=== PATIENT | female | born 1985 | race Caucasian/White ===

== ENCOUNTER 2017-03-09 05:12 | Outpatient (CLI) | payer MEDICAID, OTHER ==
[~2017-03-09] VITALS: Ht 172.7 cm; Wt 79.3 kg
[2017-03-09 06:22] VITALS: Ht 172.7 cm; Wt 79.3 kg
[2017-03-09 06:23] VITALS: BP 117/67; PULSE 83; RESP 18
[2017-03-09] MEDS ORDERED: OMEG-140 PO (06:28)
[2017-03-09] MEDS ORDERED: PRENAT PO (06:28)
[2017-03-09] MEDS ORDERED: FOLI0.8C PO (06:28)
[2017-03-09] MEDS ORDERED: TERBUTALINE 1 MG/ML INJ SC ONE (07:00)
--- NOTE | 2017-03-09 09:33 | RADRPT ---
PROCEDURE: US OB. CLINICAL INDICATION: Twin gestation. Vaginal bleeding. TECHNIQUE: Multiple sonographic images of the pelvis were obtained. Transabdominal and transvagin al imaging was performed. The images were reviewed on a PACS workstation. COMPARISON: None available. FINDINGS: There is a twin viable intrauterine gestation. The cervix is closed with a length of 3.54 cm. Twin A: Cardiac activity is present with 158 beats per minute. There is a cephalic presentation. BPD = 5.8 cm HC = 22.48 cm AC = 19.6 cm FL = 4.11 cm Estimated gestational age of approximately 24 weeks 0 days. The estimated date of delivery is 06/29/2017. The EFW = 643.1 g, at the less than 3rd percentile. Twin B: Cardiac activity is present with 161 beats per minute. There is a breech presentation. BPD = 5.49 cm HC = 21.53 cm AC = 18.61 cm FL = 4.17 cm Estimated gestational age of approximately 23 weeks 2 days. The estimated date of delivery is 07/04/2017. The EFW = 595.17 g, at the less than 3rd percentile. The placenta is right posterior, grade 0/1. There is no evidence for an abruption or placenta previa . IMPRESSION: 1. Twin viable intrauterine gestation. Twin A: Estimated gestational age of 24 weeks 0 days an es timated delivery date of 06/29/2017. Twin B: Estimated gestational age of 23 weeks 2 days an estim ated delivery date of 07/04/2017. RPTAT: HLBP .Diomedes Gallagher MD, Date Time Electronically viewed and signed by .Diomedes Gallagher MD, MD on 03/09/2017 09:32 .P/
--- NOTE | 2017-03-09 11:44 | QN ---
Documentation Comment Laborist Dr Dye's pt 31 y.o. G1 with an IUP at 25w 4d. 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 Pt came in with light bleeding since 1800 yesterday and heavier bleeding since 0300. Pt has observed pelvic rest. 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 Pt says she feels the baby moving a lot but was feeling some more pressure and back pain overnight. No leaking. PMHx: none. PSHx: twin-twin transfusion correction procedure. NKDA. BP 107/67 Twin A EFW 643 grams,VTX. Twin B 595 grams, breech. Cervical length 3.5 cm, closed. Placenta is right posterior and w/o evidence of abruption or previa. Pt was given a dose of terbutaline and she does report feeling the back pain and LAP that she was having has resolved. On review of the tracing however it cannot be determined that she was having contractions. A: IUP at 25w 4d. Twins, mono-mono, s/p twin-twin transfusion correction surgery. Bleeding. False labor. P: RN spoke to Dr Dye so he is aware of this pt and agrees with plan to send her home. Reviewed in detail with pt and her family what modified bedrest is and why it is important and how it differs from what she has been doing. JOANNE WAITE MD March 09, 2017 11:43
== END 2017-03-09 11:58 | disposition home or self-care (01) ==
LOC: OBT 05:12 → L-D 05:13 → OBT 11:58
PROVIDERS: ATTEND Obstetrics & Gynecology
DX: O30.012 Twin pregnancy, monochorionic/monoamniotic, second trimester (principal); O46.92 Antepartum hemorrhage, unspecified, second trimester; Z3A.25 25 weeks gestation of pregnancy
CPT/HCPCS: 76815; 76817; 96372; J3105; Z7500; G0463

== ENCOUNTER 2017-03-24 13:43 | Inpatient (IN) | payer OTHER ==
[~2017-03-24] VITALS: Ht 170.2 cm; Wt 80.7 kg
[~2017-03-24 13:43] MED LIST: FOLI0.8C PO; OMEG-140 PO; PRENAT PO
[2017-03-24] MEDS ORDERED: FERR236T PO (13:55)
[2017-03-24 14:25] VITALS: BP 113/71; PULSE 84; RESP 18
--- NOTE | 2017-03-24 15:10 | RADRPT ---
PROCEDURE: US OB. CLINICAL INDICATION: Vaginal bleeding TECHNIQUE: Multiple sonographic images of the pelvis were obtained. Transabdominal imaging only w as performed. The images were reviewed on a PACS workstation. COMPARISON: 03/09/2017 FINDINGS: There is a twin intrauterine gestation. There is a shared lateral placenta without evidence of previa or abruption. TWIN A Cardiac activity is present with 168 beats per minute. Presentation is cephalic. TWIN B Cardiac activity is present with 166 beats per minute. Presentation is breech. IMPRESSION: 1. Twin intrauterine gestation. 2. No previa or abruption. RPTAT: EE .James Ha MD, MD Date Time Electronically viewed and signed by .James Ha MD, MD on 03/24/2017 15:14 .C/
[2017-03-24] MEDS ORDERED: DIMETHICONE STICK TOP PRN (15:30)
[2017-03-24] MEDS ORDERED: MAGNESIUM SULFATE 4 GM/100 ML 100 ML ONE (16:36)
[2017-03-24] MEDS ORDERED: MAGNESIUM SULFATE 4 GM/100 ML 100 ML IV ONE (17:00)
[2017-03-24 17:08] LABS: ADD UMIC YES; UR BILIRUBIN (Dip) NEGATIVE (NEGATIVE); UR BLOOD (Dip) 2+ (NEGATIVE); UR CLARITY CLEAR (CLEAR); UR COLOR YELLOW (YELLOW); UR GLUCOSE (Dip) NEGATIVE (NEGATIVE); UR KETONES (Dip) NEGATIVE (NEGATIVE); UR LEUKOCYTE ESTERASE (Dip) NEGATIVE (NEGATIVE); UR NITRITE (Dip) NEGATIVE (NEGATIVE); UR TOTAL PROTEIN (Dip) 1+ (NEGATIVE); UR UROBILINOGEN (Dip) 0.2 E.U./dL (0.1-1.0)
[2017-03-24 17:19] LABS: UR MUCUS MODERATE
[2017-03-24 17:21] LABS: UR BACTERIA RARE
[2017-03-24] MEDS: LACTATED RINGER'S 1,000 ML IV SCH (17:31)
[2017-03-24] MEDS: MAGNESIUM SULFATE 20 GM/500 ML 500 ML IV SCH (17:42)
[2017-03-24] MEDS: BETAMET NA PHOS/AC(6 MG/ML) 5ML INJ IM SCH (17:44)
--- NOTE | 2017-03-24 17:44 | TRIAGE ---
OB Triage Datetime Report Generated by CPN: 03/24/2017 17:44 Datetime: 03/24/2017 17:20 Assessment Type: Admission Assessment Vaginal Bleeding: Small Maternal Assessment Level of Consciousness: Fully Conscious DTR's/Clonus: DTRs 2+; No Clonus Headache: Denies Blurred Vision: No Respiratory Effort: Unlabored; Regular Rhythm; Equal Expansion Breath Sounds, Left: Clear and Equal Breath Sounds, Right: Clear and Equal Nausea/Vomiting: Denies RUQ Epigastric Pain: Denies Lower Extremities Edema: None Upper Extremities Edema: None Facial Edema: None Fall Risk Assessment History of Falling: (0) No Secondary Diagnosis: (0) No Ambulatory Aid: (0) Bedrest/Nurse Assist IV Therapy: (0) No Gait: (0) Normal/Bedrest/Immobile Mental Status: (0) Oriented to Own Ability Fall Score: 0 Fall Risk Score Definition: No Risk: No action required Labor Evaluation Frequency: occ Duration (sec)2399: 5-6 Quality: Mild Pattern: Normal: <= 5 Contractions in 10 Minutes Resting Tone [place]: Relaxed Heart Rate FHR Baseline Rate: 160 Variability: Moderate 6-25 bpm Accelerations: 10X10 Decelerations: Variable Category: Category II Pain Assessment Pain Scale: 5 Pain Presence: Intermittent Pain Type: Sharp; Ache Pain Location: Back (Annotations: lower back ) Membrane Status: Intact Datetime: 03/24/2017 17:18 Time of Arrival: 03/24/2017 16:25 EGA: 27.5 Arrived By: Stretcher Arrived From: Other Unit in Hospital Datetime: 03/24/2017 16:21 Labor Evaluation Frequency: 2-10 Monitor Mode: External Duration (sec)2399: 40-60 Quality: Mild Pattern: Normal: <= 5 Contractions in 10 Minutes Resting Tone [place]: Relaxed Contraction Comments: IRRITABILITIES PRESENT Heart Rate FHR Baseline Rate: 155 Monitor Mode: External US FHR Baseline Changes: No Baseline Change Variability: Moderate 6-25 bpm Accelerations: 15X15 Decelerations: Variable Pain Assessment Pain Scale: 6 Pain Presence: Intermittent Pain Type: Sharp; Ache Pain Location: Back Datetime: 03/24/2017 15:48 Labor Evaluation Frequency: 2-5 Monitor Mode: External Duration (sec)2399: 50-80 Quality: Mild Pattern: Normal: <= 5 Contractions in 10 Minutes Resting Tone [place]: Relaxed Heart Rate FHR Baseline Rate: 155 Monitor Mode: External US FHR Baseline Changes: No Baseline Change Variability: Moderate 6-25 bpm Accelerations: 10X10 Decelerations: Variable; Prolonged Datetime: 03/24/2017 15:23 Decelerations: Prolonged Comments: @1519, DECEL FROM BASELINE 160BPM DOWN TO 145BPM OVER 30SECONDS, AT 145BPM OVER 90 SECON DS, THEN BACK TO BASELINE 160BPM OVER 30 SECONDS Datetime: 03/24/2017 15:10 Comments: MATERNAL HEARTBEAT, PT'S LEGS BENT UP; PT REPOSITIONED Datetime: 03/24/2017 15:06 Vaginal Exam Dilatation (cms): 0.5 Effacement (%): 0 Station: -3 Exam By: CKUNIYOSHI Vaginal Bleeding: Small Cervix, Consistency: Firm Cervix, Position: Posterior Datetime: 03/24/2017 14:44 Labor Evaluation Frequency: 0 Monitor Mode: External Pattern: Normal: <= 5 Contractions in 10 Minutes Resting Tone [place]: Relaxed Heart Rate FHR Baseline Rate: 155 FHR Baseline Changes: No Baseline Change Variability: Moderate 6-25 bpm Accelerations: 10X10 Decelerations: Variable Datetime: 03/24/2017 14:22 Monitor Mode: External Datetime: 03/24/2017 14:17 Stage of : OB Triage Assessment Type: Triage Maternal Assessment Level of Consciousness: Fully Conscious Headache: Denies Blurred Vision: No Respiratory Effort: Unlabored; Regular Rhythm; Equal Expansion Breath Sounds, Left: Clear and Equal Breath Sounds, Right: Clear and Equal Nausea/Vomiting: Denies RUQ Epigastric Pain: Denies Lower Extremities Edema: None Degree: None Upper Extremities Edema: None (Annotations: PT REPORTS SWELLING OF HANDS AT NIGHT ONLY) Degree: None Facial Edema: None Temperature Route: Oral Fall Risk Assessment History of Falling: (0) No Secondary Diagnosis: (0) No Ambulatory Aid: (0) Bedrest/Nurse Assist IV Therapy: (0) No Gait: (0) Normal/Bedrest/Immobile Mental Status: (0) Oriented to Own Ability Fall Score: 0 Fall Risk Score Definition: No Risk: No action required Pain Assessment Pain Scale: 6 Pain Presence: Constant Pain Type: Sharp; Ache Pain Location: Back Pain Assessment Comments: PAIN OF 4/10 IN LEFT LOWER ABDOMEN Datetime: 03/24/2017 13:58 Time of Arrival: 03/24/2017 13:38 EGA: 27.5 Arrived By: Wheelchair Arrived From: Emergency Dept Chief Complaint: LOWER BACK PAIN; BLEEDING FROM 03/07 - UNKNOWN REASON (Annotations: Data stored by CPN on behalf of user) Chief Complaint: LOWER BACK PAIN OF 6/10 THAT COMES AND GOES; STRONGER WHEN SHE IS STANDING OR WAL STACEY Movement: Present Contractions: Denies/Absent Rupture of Membranes: Denies Vaginal Bleeding: Moderate Vaginal Discharge: Present Recent Sexual Intercouse: Denies Abdominal Trauma: Not Applicable Patient Complaints: Back Pain; Other Additional Patient Complaints: BLEEDING FROM 03/09; APPPROX 3-4 OVERNIGHT PADS/DAY; SLIGHT CRAMPIN G PAIN OF 4/10 ON LEFT ABDOMEN Time Provider Notified: 03/24/2017 14:31 Provider Notified: DR. PEÑALOZA Initial Plan: EFM x2, U/S FOR PLACENTA, SVE (IF NO EVIDENCE OF PREVIA), OBSERVE x4 HOURS, KEEP NPO Datetime: 03/09/2017 08:40 Maternal Assessment Level of Consciousness: Fully Conscious DTR's/Clonus: DTRs 2+; No Clonus Headache: Denies Blurred Vision: No Respiratory Effort: Unlabored; Regular Rhythm; Equal Expansion Breath Sounds, Left: Clear and Equal Breath Sounds, Right: Clear and Equal Nausea/Vomiting: Denies RUQ Epigastric Pain: Denies Facial Edema: None Temperature Route: Axillary Fall Risk Assessment History of Falling: (0) No Secondary Diagnosis: (0) No Ambulatory Aid: (0) Bedrest/Nurse Assist IV Therapy: (0) No Gait: (0) Normal/Bedrest/Immobile Mental Status: (0) Oriented to Own Ability Fall Score: 0 Fall Risk Score Definition: No Risk: No action required Datetime: 03/09/2017 07:19 Maternal Assessment Level of Consciousness: Fully Conscious DTR's/Clonus: DTRs 2+; No Clonus Headache: Denies Blurred Vision: No Respiratory Effort: Unlabored; Regular Rhythm; Equal Expansion Breath Sounds, Left: Clear and Equal Breath Sounds, Right: Clear and Equal Nausea/Vomiting: Denies RUQ Epigastric Pain: Denies Facial Edema: None Temperature Route: Axillary Fall Risk Assessment History of Falling: (0) No Secondary Diagnosis: (0) No Ambulatory Aid: (0) Bedrest/Nurse Assist IV Therapy: (0) No Gait: (0) Normal/Bedrest/Immobile Mental Status: (0) Oriented to Own Ability Fall Score: 0 Fall Risk Score Definition: No Risk: No action required Datetime: 03/09/2017 07:17 Maternal Assessment Level of Consciousness: Fully Conscious DTR's/Clonus: DTRs 2+ Headache: Denies Blurred Vision: No Nausea/Vomiting: Denies RUQ Epigastric Pain: Denies Facial Edema: None Labor Evaluation Frequency: MILD IRREG Monitor Mode: External Quality: Mild Pattern: Normal: <= 5 Contractions in 10 Minutes Resting Tone [place]: Relaxed Pain Assessment Pain Scale: 4 Pain Presence: Intermittent Pain Type: Pressure Pain Location: Abdomen Pain Goal: 4 Datetime: 03/09/2017 07:01 Vaginal Exam Dilatation (cms): 0.5 Effacement (%): 40 Station: -3 Exam By: Joe Olmos RN Vaginal Bleeding: Small Cervix, Consistency: Firm Cervix, Position: Posterior Datetime: 03/09/2017 05:54 Assessment Type: Triage Maternal Assessment Level of Consciousness: Fully Conscious DTR's/Clonus: DTRs 2+; No Clonus Headache: Denies Blurred Vision: No Respiratory Effort: Unlabored; Regular Rhythm; Equal Expansion Breath Sounds, Left: Clear and Equal Breath Sounds, Right: Clear and Equal Nausea/Vomiting: Denies RUQ Epigastric Pain: Denies Facial Edema: None Fall Risk Assessment History of Falling: (0) No Secondary Diagnosis: (0) No Ambulatory Aid: (0) Bedrest/Nurse Assist IV Therapy: (0) No Gait: (0) Normal/Bedrest/Immobile Mental Status: (0) Oriented to Own Ability Fall Score: 0 Fall Risk Score Definition: No Risk: No action required Datetime: 03/09/2017 05:19 EGA: 25.4 Datetime: 03/09/2017 05:18 Time of Arrival: 03/09/2017 05:05 Arrived By: Wheelchair Arrived From: Home Chief Complaint: Abdominal pain, Bleeding Movement: Present Contractions: Irregular Time Contractions Began: 03/08/2017 18:00 Rupture of Membranes: Denies Vaginal Bleeding: Moderate Recent Sexual Intercouse: Denies Abdominal Trauma: Not Applicable Patient Complaints: Other Time Provider Notified: 03/09/2017 06:30 Provider Notified: DR PEÑALOZA Initial Plan: Doppler FHT's, VE, CL, hydration, Terb.
[2017-03-24 18:35] LABS: ADD SCAN DIFF NO
[2017-03-24 18:41] LABS: BASOPHILS % 0.2 % (0.0-2.0); EOSINOPHILS # 0.1 10^3/ul (0.0-0.5); EOSINOPHILS % 0.9 % (0.0-7.0); HEMATOCRIT 26.7 % (37.0-47.0); HEMOGLOBIN 8.8 g/dl (12.0-16.0); LYMPHOCYTES # 1.4 10^3/ul (0.8-2.9); LYMPHOCYTES % 11.7 % (15.0-51.0); MONOCYTE # 0.9 10^3/ul (0.3-0.9); MONOCYTES % 7.2 % (0.0-11.0); NEUTROPHIL # 9.4 10^3/ul (1.6-7.5); NEUTROPHILS % 78.4 % (39.0-77.0); NUCLEATED RED BLOOD CELLS # 0.1 10^3/ul (0.0-0.0); NUCLEATED RED BLOOD CELLS% 0.6 /100WBC (0.0-0.0); PLATELET COUNT 188 10^3/UL (140-415); RED BLOOD COUNT 3.14 10^6/ul (4.20-5.40)
[2017-03-24 18:53] LABS: INR 0.97; PROTIME 12.9 Sec (12.2-14.2)
[2017-03-24 18:54] LABS: PARTIAL THROMBOPLASTIN TIME 27.4 Sec (25.0-35.0)
[2017-03-25] MEDS: MAGNESIUM SULFATE 20 GM/500 ML 500 ML IV SCH ×2 (03:20→14:11)
[2017-03-25] MEDS: LACTATED RINGER'S 1,000 ML IV SCH ×2 (03:21→16:05)
--- NOTE | 2017-03-25 06:17 | RADRPT ---
PROCEDURE: OB ultrasound for RED CLINICAL INDICATION: Twin , position TECHNIQUE: Multiple sonographic images of the pelvis were obtained for determination of RED. Booth sabdominal views of the gravid uterus are available for review. The images were reviewed on a PACS workstation. COMPARISON: None FINDINGS: Twin A: The heart rate is 132 bpm. position is cephalic. Twin B: The heart rate is 144 bpm. position is breech. The placenta is fundal . IMPRESSION: 1. Twin live intrauterine gestation. 2. Twin A demonstrates cephalic presentation. Twin B demonstrates breech presentation. RPTAT: HH .Edel Archer MD, MD Date Time Electronically viewed and signed by .Edel Archer MD, on 03/25/2017 06:16 .G/
[2017-03-25] MEDS: DEXTROSE 5%-LR 1,000 ML IV SCH (07:39)
--- NOTE | 2017-03-25 10:25 | RADRPT ---
PROCEDURE: US OB biophysical profile. CLINICAL INDICATION: decreased movements TECHNIQUE: Multiple sonographic images of the pelvis were obtained. The images were reviewed on a PACS workstation. COMPARISON: Yesterday FINDINGS: There is a twin viable intrauterine gestation. Twin A Cardiac activity is present with 144 beats per minute. There is a cephalic presentation. The placenta is fundal. MVP = 1.5 cm Biophysical profile: movement 2/2 tone 2/2. breathing 2/2 RED /2 Total 6/8 Twin B Cardiac activity is present with 134 beats per minute. There is a breech presentation. The placenta is fundal. MVP = 1.6 cm Biophysical profile: movement 2/2 tone 2/2. breathing 2/2 RED 0/2 Total 6/8 RPTAT: AA . IMPRESSION: Decreased biophysical profile for twin gestation . Oligohydramnios. . .Chad Ballard MD, MD Date Time Electronically viewed and signed by .Chad Ballard MD, MD on 03/25/2017 10:24 .S/
[2017-03-25 11:22] LABS: BARBITURATES Negative (NEGATIVE); BENZODIAZEPINES Negative (NEGATIVE); CANNABINOIDS Negative (NEGATIVE); COCAINE Negative (NEGATIVE); OPIATES Negative (NEGATIVE)
[2017-03-25] MEDS ORDERED: AMPICILLIN 2 GM/NS (PMX) 100 ML IV ONE (14:00)
[2017-03-25] MEDS ORDERED: AZITHROMYCIN 500MG/NS (PMX) 250 ML IVPB ONE (14:00)
[2017-03-25] MEDS ORDERED: MAGNESIUM SULFATE 1 GM/D5W 100 ML IVPB ONE (14:00)
--- NOTE | 2017-03-25 15:11 | QN ---
Documentation Comment Neonatology consult at the request of Dr. Dye 03/25/2017 I spoke with Ms. Morochocarla and Dr. Dye in her room regarding the risks associated delivery twin gestation with complications. This mom is 20 years old 2 para 1 now at 29-6/7 weeks gestation status post twin-twin transfusion with ablation and being followed by perinatology at [facility]. Both infants are growing slowly less than 3rd percentile with minimal amniotic fluid surrounding each twin. One twin has possible intraventricular hemorrhage of both twins to have some form of cardiac problems on the last ultrasound. I spoke about the risks associated with delivery including not limited to the following 1 respiratory I spoke about the risks of respiratory distress syndrome use of ventilatory support and oxygen I did explain that having low amniotic fluid as well as poor growth does compromise the our ability to have adequate pulmonary growth for ventilation and may complicate the long-term course and lead to chronic issues. 2.Cardiac there were abnormalities seen on both 's initial ultrasounds and those will need to be addressed by cardiology the infant may have problem with hypotension requiring inotropic support may have ductus arteriosus also requiring closure either with the medications or surgery at a tertiary center. 3.I spoke of the risks of infection especially in light of these infant's a very low size and the anticipated need for long-term interventional access either lines endotracheal intubation etc. which will increase the risks of infection. 4. I also spoke with the risks of anemia jaundice and long-term sequelae. 5. We spoke of the risks of intraventricular hemorrhage but because of being born prematurely as well as the abnormality seen on ultrasound I did explain the grading system long-term possible sequela and that and she wishes to speak with a neurologist to have better information once a decision is made about delivering these infants. I concur with Dr. Dye that in light of this significant issues with IUGR status, oligohydramnios, twin gestation with a history of twin-twin transfusion , cardiac ultrasound abnormalities as noted previously that delivery is probably best at a tertiary center and we are expecting that that if possible will be arranged. There is an emergent situation requiring delivery here will be course available for attendance at delivery as well as their stabilization and considerations for treatment or transfer as necessary based on her medical condition. Thank you for this consult KEITH Parra MD Mar 25, 2017 15:11
--- NOTE | 2017-03-25 16:11 | HP ---
Date/Time of Note Date/Time of Note DATE: 03/25/17 TIME: 16:09 OB - History Hx of Present Free Text/Dictation 27 WEEKS, TWINS, HX OF CORD ABALATION BY DR. ALEJANDRO. PRESENTS WITH VAG BLEED AND UTERINE CTXS ADMITTED FOR BETA METHASONE, AMPICILLIN, MAGNESUIUM Care: Good Care Ultrasounds: Abnormal US findings (TWIN TWIN TRASNFUSION) Obstetrical Complications: Growth Restriction Medical Complications: None Past Family/Social History * Past Medical, Surgical, Family and Obstetric Histories reviewed from chart. OB Admission Exam Vital Signs Vital Signs Vital Signs Date Time Temp Pulse Resp B/P Pulse Ox O2 Delivery O2 Flow Rate FiO2 03/24/17 14:25 98.2 84 18 113/71 98 Room Air Physical Exam HEENT: WNL Heart: Rhythm Normal Lungs: Clear, Equal Abdomen: WNL Extremities: Normal Reflexes: Normal Cervical Dilatation: None Effacement: 0% Station: Ballotable Membranes: Intact Contractions on Admission: 6-10 Minutes Apart Intensity: Mild Last 72 hours Lab Results CBC & BMP 03/24/17 17:50 Magnesium Level Test 03/25/17 00:40 03/25/17 05:30 03/25/17 11:35 Magnesium Level 6.2 *H 6.7 *H 7.3 *H OB Assessment/Plan Reason for admission: observation Plan: Other (BETA METHASONE, AMPICILLIN, MAGNESIUM) JULIO PEÑALOZA MD Mar 25, 2017 16:11
[2017-03-25] MEDS: MULTIVIT/MIN/FOLATE/IRON/PREN TAB PO SCH (17:43)
[2017-03-25] MEDS: BETAMET NA PHOS/AC(6 MG/ML) 5ML INJ IM SCH (17:43)
[2017-03-25] MEDS: FERROUS SULFATE (EC) 325 MG TAB PO SCH (17:43)
[2017-03-25] MEDS: AMPICILLIN 1 GM/NS (PMX) 50 ML IV SCH (19:54)
[2017-03-26] MEDS: AMPICILLIN 1 GM/NS (PMX) 50 ML IV SCH ×7 (00:15→20:17)
--- NOTE | 2017-03-26 03:15 | CONS ---
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 She un derwent ablation of the placenta, and currently this is counted as a diamniotic dichorioni c twins. According to her ultrasound initially, both babies were growth restricted with twin B more than twin A. Her most recent ultrasound showed interval growth, and twin B is essentially at 13th percentile for gestational age, and twin A is about 10. On 03/21/2017, maximum vertical pocket of t win A was about 3 cm and twin B was 2.4 cm. It is also important to mention that the twin B had some ventricular hemorrhage which, on the ultras ound done on 03/21/2017, the amount has apparently decreased. After talking to the patient, the patient desires intervention for both babies, and she has had disc ussions with Dr. Ruiz about the possibility of neural damage on the twin B; however, she would like to have everything done for both. She, underwent BPP, maximal vertical pocket of both twins were less than 2 cm. This could be second radha to progression of disease or rupture of membranes. She came in with heavy vaginal bleeding yest erday, and it is possible that she had some vaginal fluid with that bleeding; however, it is not shawanda e what is the etiology of oligohydramnios. So far, I will be treating her as rupture of membranes. RECOMMENDATIONS: Continue monitoring of both twins. She is currently being tocolysed for con tractions, and her second dose of magnesium sulfate is to be given this afternoon early evening. Monitor the magnesium level, and currently her magnesium is decreased to 1 gram after her magnesium level was 7.6. So far, the plan is for the patient to be in house managed, and if there is no evidence of bleeding and also she does not have any leakage of fluid which negates rupture of membrane as the cause of e oligohydramnios, she could possibly be discharged on Saturday morning to present to her appointme nt with Dr. Ruiz which is important for further counseling, and also they are to discuss whether sh e would like to terminate the for twin B; however, I am not sure about this as she is curr ently about 28 weeks; however, she has had discussions with Dr. Ruiz, and they will be addressing i t at that time if she gets to be discharged and to see Dr. Ruiz; however, after I spoke to Dr. Giovanna rouse today, essentially his recommendation was that the patient should see her after discharge if she i s to be discharged. Otherwise, the plan should be discussed with the patient, and she desires compl ete resuscitation of both fetuses. As I mentioned above, she would like to be monitored and resusci tation to be made for both of them. Continue with the IV antibiotics for latency. However, if by W she is not having any leakage of fluid, then it can be discontinued. However, I will send the patient home if she is to be discharged on p.o. antibiotics. NICU is consulted, and I spoke to Dr. Ruiz and Dr. Dye multiple times. The plan has been discus sed with Dr. Dye. Dictated By: EMILEE RAMOS/AMBAR Conf#: [id number] DID#: [id number]
[2017-03-26] MEDS: LACTATED RINGER'S 1,000 ML IV SCH ×3 (03:32→22:08)
[2017-03-26] MEDS: DEXTROSE 5%-LR 1,000 ML IV SCH ×5 (07:30→23:30)
[2017-03-26] MEDS: MAGNESIUM SULFATE 20 GM/500 ML 500 ML IV SCH ×2 (07:42→10:42)
[2017-03-26] MEDS: MULTIVIT/MIN/FOLATE/IRON/PREN TAB PO SCH (08:41)
[2017-03-26] MEDS: FERROUS SULFATE (EC) 325 MG TAB PO SCH (08:41)
[2017-03-26 12:56] LABS: RUBELLA ANTIBODY - IGG 1.52 index
[2017-03-26] MEDS: AZITHROMYCIN 250 MG in SOD CHLORIDE 0.9% 250 ML IVPB SCH (15:10)
--- NOTE | 2017-03-26 20:13 | QN ---
Documentation Comment pt. is stable vss minimal vag bleed. occ ctxs. tracings reactive no decleration. Plan: will check for SROM and if negative will d/c home pt. to see Dr. Berg at [facility]. Pt. understands and agrees with the decision plan JULIO PEÑALOZA MD Mar 26, 2017 20:13
[2017-03-27] MEDS: AMPICILLIN 1 GM/NS (PMX) 50 ML IV SCH (00:01)
[2017-03-27] MEDS ORDERED: MAGNESIUM SULFATE 4 GM/100 ML 100 ML IVPB ONE (00:30)
[2017-03-27] MEDS: MAGNESIUM SULFATE 20 GM/500 ML 500 ML IV SCH ×2 (01:41→11:10)
[2017-03-27] MEDS: LACTATED RINGER'S 1,000 ML IV SCH ×2 (01:42→13:56)
[2017-03-27] MEDS: AMPICILLIN 1 GM/NS (PMX) 50 ML IVPB SCH ×3 (04:10→13:56)
[2017-03-27] MEDS: DEXTROSE 5%-LR 1,000 ML IV SCH ×2 (07:30→15:30)
--- NOTE | 2017-03-27 09:06 | RADRPT ---
PROCEDURE: US OB biophysical profile. CLINICAL INDICATION: decreased movements , oligohydramnios. TECHNIQUE: Multiple sonographic images of the pelvis were obtained. The images were reviewed on a PACS workstation. COMPARISON: 03/25/2017 FINDINGS: There is a twin viable intrauterine gestation. Twin A Cardiac activity is present with 152 beats per minute. There is a vertex presentation. MVP = 1.85 cm Biophysical profile: movement 2/2 tone 2/2. breathing 2/2 RED 0/2 Total 6/8 Twin B Cardiac activity is present with 140 beats per minute. There is a breech presentation. The placenta is fundal. MVP = 1.6 cm Biophysical profile: movement 2/2 tone 2/2. breathing 2/2 RED 0/2 Total 6/8 RPTAT: AA . IMPRESSION: Decreased biophysical profile for twin gestation . Oligohydramnios. . .Chad Ballard MD, MD Date Time Electronically viewed and signed by .Chad Ballard MD, on 03/27/2017 09:05 .S/
[2017-03-27] MEDS: FERROUS SULFATE (EC) 325 MG TAB PO SCH (09:46)
[2017-03-27] MEDS: MULTIVIT/MIN/FOLATE/IRON/PREN TAB PO SCH (09:46)
--- NOTE | 2017-03-27 13:58 | PN ---
Date/Time of Note Date/Time of Note DATE: 03/27/17 TIME: 13:56 OB Subjective Subjective Subjective Patient reports shortness of breath, Denies any chest pain. Denies feeling any contractions, still continued to have occasional vaginal bleeding. OB Objective Objective Objective General appearance: Alert and oriented 4. Patient appears to be in mild distress Lungs: Clear to auscultation bilaterally CV: RRR Abdomen: Soft, gravid, fundal height correlate the gestational age and twin No abdominal tenderness, no guarding Extremities: No calf tenderness, no cords palpable, no click, negative Homans sign 1+ bilateral patellar reflexes noted NST: Category 1 for both babies No contractions seen on the monitor Sterile speculum examination: Cervix appears to be closed and long. About 2 cc bloody fluid noted. Hematology - 72 Hrs Test 03/24/17 17:50 White Blood Count 12.010^3/ul (4.8-10.8) H Red Blood Count 3.1410^6/ul (4.20-5.40) L Hemoglobin 8.8g/dl (12.0-16.0) L Hematocrit 26.7% (37.0-47.0) L Mean Corpuscular Volume 85.0fl (82.0-101.0) Mean Corpuscular Hemoglobin 28.0pg (29.0-33.0) L Mean Corpuscular Hemoglobin Concent 33.0g/dl (32.0-37.0) Red Cell Distribution Width 15.0% (11.5-14.5) H Platelet Count 56553^3/UL (140-415) Mean Platelet Volume 11.0fl (7.4-10.4) H Neutrophils % 78.4% (39.0-77.0) H Lymphocytes % 11.7% (15.0-51.0) L Monocytes % 7.2% (0.0-11.0) Eosinophils % 0.9% (0.0-7.0) Basophils % 0.2% (0.0-2.0) Nucleated Red Blood Cells % 0.6/100WBC (0.0-0.0) H Neutrophils # 9.410^3/ul (1.6-7.5) H Lymphocytes # 1.410^3/ul (0.8-2.9) Monocytes # 0.910^3/ul (0.3-0.9) Eosinophils # 0.110^3/ul (0.0-0.5) Basophils # 0.010^3/ul (0.0-0.1) Nucleated Red Blood Cells # 0.110^3/ul (0.0-0.0) H Chemistry Test 03/25/17 00:40 03/25/17 05:30 03/25/17 11:35 03/25/17 15:40 Magnesium Level 6.2mg/dl (1.7-2.5) *H 6.7mg/dl (1.7-2.5) *H 7.3mg/dl (1.7-2.5) *H 6.4mg/dl (1.7-2.5) *H Test 03/25/17 18:06 Magnesium Level 6.0mg/dl (1.7-2.5) *H OB Assessment/Plan Other Assessment: Spontaneous twin gestation. Twin twin transfusion IUGR Admitted for vaginal bleeding, noted to have oligohydramnios, not clear whether is PPROM or not Currently being treated as PPROM. Following up by Dr. Dye and Dr. Gomes Plan was delivery at [facility] due to high risk condition, however due to vaginal bleeding patient presented to [facility] Had some contractions last night, was a started on magnesium for tocolysis Status post 2 doses of steroid. Currently more than 48 hours after the last dose Status post Marlo consult Patient would benefit to deliver at [facility] in order to have access to [facility] Patient has an appointment today with perinatologist. I did not feel the patient was stable enough to be discharged I discussed this plan of care with Dr. Gomes and Dr. Dye. Patient has some shortness of breath, likely related to magnesium effect Currently lungs are clear. Plan to start weaning her off of magnesium Consider chest x-ray if continues to have shortness of breath IV fluids decreased to 80 cc/h it was started initially at 120 cc/h She had adequate urine output We will continue to closely monitor LATOYA HINTON MD Mar 27, 2017 13:58
[2017-03-27] MEDS ORDERED: FUROSEMIDE 20 MG INJ IV ONE ×2 (14:00→16:30)
--- NOTE | 2017-03-27 15:03 | RADRPT ---
PROCEDURE: XR Chest. CLINICAL INDICATION: shortness of breath TECHNIQUE: Single portable view of the chest was obtained COMPARISON: None FINDINGS: There is mild cardiomegaly. There is mild pulmonary vascular congestion. There are bilateral perihilar and lower lobe infiltrat es and small bilateral pleural effusions. There is no pneumothorax. The bones and soft tissues are unremarkable. RPTAT: AA IMPRESSION: Mild cardiomegaly with pulmonary vascular congestion. .Chad Ballard MD, MD Date Time Electronically viewed and signed by .Chad Ballard MD, on 03/27/2017 15:03 .S/
[2017-03-27] MEDS: AZITHROMYCIN 250 MG in SOD CHLORIDE 0.9% 250 ML IVPB SCH (15:47)
[2017-03-27] MEDS ORDERED: FUROSEMIDE 20 MG INJ IM ONE (16:30)
--- NOTE | 2017-03-27 17:25 | RADRPT ---
PROCEDURE: US venous lower extremities bilaterally. CLINICAL INDICATION: Bilateral lower extremity swelling. TECHNIQUE: Multiple longitudinal and transverse images of the bilateral lower extremity veins were obtained with chavez scale and color Doppler imaging. 2D grayscale imaging with compression, color D oppler flow, and augmentation was performed. The calf veins were interrogated as well. COMPARISON: None available. FINDINGS: The common femoral, superficial femoral, and popliteal veins are compressible bilaterally. There is normal color Doppler flow within the vessels. Normal waveforms are visualized and there is normal response to augmentation. The calf veins are visualized and are equally unremarkable. IMPRESSION: 1. No evidence of deep vein thrombosis in the lower extremities bilaterally. RPTAT: VV .Diomedes Gallagher MD, MD Date Time Electronically viewed and signed by .Diomedes Gallagher MD, MD on 03/27/2017 17:25 .P/
[2017-03-27] MEDS ORDERED: CEFTRIAXONE 1 GM/50 ML (PMX) 50 ML IVPB SCH ×2 (17:30→20:00)
[2017-03-27] MEDS ORDERED: FUROSEMIDE 20 MG INJ IV SCH ×2 (18:00→22:00)
[2017-03-27 18:15] LABS: ADD SCAN DIFF NO
[2017-03-27 18:16] LABS: ABNORMAL IP MESSAGE 1; HEMATOCRIT 22.5 % (37.0-47.0); HEMOGLOBIN 7.3 g/dl (12.0-16.0); MEAN CORPUSCULAR HEMOGLOBIN 27.9 pg (29.0-33.0); MEAN CORPUSCULAR HGB CONC 32.4 g/dl (32.0-37.0); MEAN CORPUSCULAR VOLUME 85.9 fl (82.0-101.0); MEAN PLATELET VOLUME 10.3 fl (7.4-10.4); PLATELET COUNT 160 10^3/UL (140-415); RED BLOOD COUNT 2.62 10^6/ul (4.20-5.40); RED CELL DISTRIBUTION WIDTH 15.8 % (11.5-14.5); WHITE BLOOD COUNT 15.6 10^3/ul (4.8-10.8)
[2017-03-27 18:53] LABS: CALCIUM 6.2 mg/dl (8.4-10.2); CREATININE 0.64 mg/dl (0.44-1.00); POTASSIUM 3.5 mmol/L (3.5-5.1)
[2017-03-27 19:25] LABS: EOSINOPHILS # 0.2 10^3/ul (0.0-0.5); LYMPHOCYTES # 0.9 10^3/ul (0.8-2.9); MONOCYTE # 0.8 10^3/ul (0.3-0.9); NEUTROPHIL # 13.6 10^3/ul (1.6-7.5)
[2017-03-27 19:26] LABS: ANISOCYTOSIS OCCASIONAL; PLATELET ESTIMATE PLT APPEAR ADEQUATE
--- NOTE | 2017-03-27 19:28 | CONS ---
Date/Time of Note Date/Time of Note DATE: 03/27/17 TIME: 19:15 Assessment/Plan Assessment/Plan Chief Complaint/Hosp Course 31-year-old female with the followin. Acute shortness of breath with pulmonary congestion and bilateral pleural effusions and chest x-ray 2. Twin intrauterine at 27 weeks with complicated by twin to twin transfusion status post Cord ablation in January 3. Hypochromic anemia with hemoglobin of 7.5 4. Hypocalcemia 5. ?pneumoniua Recommendations: * I agree with lasix therapy and recommenced a total of 3 doses 12 hours apart after which we will repeat CXR to assess for improvement * Broaden abx spectrum to cover for probable underlying pneumonia * Consider blood transfusion to improve oxygenation * replace and monitor electrolytes * Supplemental o2 and supportive care Thanks for the Consult. We will follow with you. Problems: Consultation Date/Type/Reason Admit Date/Time Mar 24, 2017 at 16:08 Date of Consultation: Mar 27, 2017 Type of Consultation: Medical Reason for Consultation SOB Hx of Present Illness This is a 31-year-old female with twin IUP at 33 weeks whose has been complicated by twin to twin transfusion and is status post cord ablation who presents with vaginal bleeding and uterine contractions. She is being treated with beclomethasone, and magnesium infusion when she presented March 24. She was unfortunately unable to tolerate magnesium after a few hours and this was discontinued. However she has been maintained on low IV fluid hydration for a total of 125 cc an hour for the last 3 days. Since yesterday the patient reports that she has been having shortness of breath that seems to have worsened and as of this morning she was having severe shortness of breath that warranted a chest x-ray. Chest x-ray showed mild cardiomegaly with pulmonary vascular congestion, he also showed bilateral perihilar and lower lobe infiltrates as well as some small bilateral pleural effusions. Based on this medical consultation was obtained to assist in management. However prior to consultation the patient had received a total of 20 mg of IV Lasix with some improvement. At this time she denies fever, denies cough, denies passing out episodes. There is no significant extremity swelling. She has been having severe abdominal pain with contractions. Past Medical History * Pertinent history concerning as summarized in HPI. Medical History: no pertinent history Past Surgical History Past Surgical Hx: no surgical history Family History Significant Family History: no pertinent family hx Social History Alcohol Use: none Smoking Status: Never smoker Drug Use: none Exam/Review of Systems Vital Signs Vitals Vital Signs Date Time Temp Pulse Resp B/P Pulse Ox O2 Delivery O2 Flow Rate FiO2 03/24/17 14:25 98.2 84 18 113/71 98 Room Air Intake and Output 03/26/17 03/26/17 03/27/17 14:59 22:59 06:59 Intake Total 1000 ml 1175 ml 850 ml Output Total 450 ml 450 ml 1250 ml Balance 550 ml 725 ml -400 ml Exam Constitutional: alert, oriented Psych: anxiety Head: normocephalic Eyes: PERRL ENMT: mucosa pink and moist Neck: non-tender, supple Respiratory: diminished breath sounds, labored breathing (Mild), No crackles/rales, No intercostal retraction, No wheezing Cardiovascular: nl pulses, regular rate and rhythm, No murmurs/extra sounds Gastrointestinal: bowel sounds, other (Gravid, nontender), soft Extremities: No edema Neurological: lethargic, nl mental status Results Result Diagram: 03/27/17175703/27/17 175 Results 24 hrs Laboratory Tests Test 03/27/17 13:33 03/27/17 17:58 Magnesium Level 5.7 *H White Blood Count 15.6 #H Red Blood Count 2.62 L Hemoglobin 7.3 L Hematocrit 22.5 L Mean Corpuscular Volume 85.9 Mean Corpuscular Hemoglobin 27.9 L Mean Corpuscular Hemoglobin Concent 32.4 Red Cell Distribution Width 15.8 H Platelet Count 160 Mean Platelet Volume 10.3 Sodium Level 137 Potassium Level 3.5 Chloride Level 108 Carbon Dioxide Level 19 L Anion Gap 14 Blood Urea Nitrogen 5 L Creatinine 0.64 Glucose Level 126 Calcium Level 6.2 L Medications Medications Current Medications Dimethicone 1 applic 1 applic Q2H PRN TOP CHAPPED LIPS Last administered on 15:55; Admin Dose 1 APPLIC; Start 03/24/17 at 15:30 Lactated Ringer's 1,000 ml @ 125 mls/hr Q8H IV Last administered on 03/27/17 13:56; Admin Dose 125 MLS/HR; Start 03/24/17 at 16:10 Dextrose/Lactated Ringer's 1,000 ml @ 125 mls/hr Q8H IV Last administered on 07:39; Admin Dose 125 MLS/HR; Start 03/25/17 at 07:30 Azithromycin/ Sodium Chloride (Zithromax/NS) 250 ml @ 250 mls/hr Q24H IVPB Last administered on 03/27/17 15:47; Admin Dose 250 MLS/HR; Start 03/26/17 at 14:00; Stop 03/31/17 at 14:00 Prenat Multivit/ [place]/Iron/Folic Ac ( S) 1 tab DAILY PO Last administered on 03/27/17 09:46; Admin Dose 1 TAB; Start 03/25/17 at 16:00 Ferrous Sulfate 325 mg 325 mg DAILY PO Last administered on 03/27/17 09:46; Admin Dose 325 MG; Start 03/25/17 at 16:30 Ceftriaxone Sodium (Rocephin) 50 ml @ 100 mls/hr Q24H IVPB ; Start 03/27/17 at 20:00 Procedures Procedures PROCEDURE: XR Chest. CLINICAL INDICATION: shortness of breath TECHNIQUE: Single portable view of the chest was obtained COMPARISON: None FINDINGS: There is mild cardiomegaly. There is mild pulmonary vascular congestion. There are bilateral perihilar and lower lobe infiltrates and small bilateral pleural effusions. There is no pneumothorax. The bones and soft tissues are unremarkable. RPTAT: AA IMPRESSION: Mild cardiomegaly with pulmonary vascular congestion. .Chad Ballard MD, MD Date Time Electronically viewed and signed by .Chad Ballard MD, MD on 03/27/2017 15: 03 .S/ CC: LATOYA HINTON MD PROCEDURE: US venous lower extremities bilaterally. CLINICAL INDICATION: Bilateral lower extremity swelling. TECHNIQUE: Multiple longitudinal and transverse images of the bilateral lower extremity veins were obtained with chavez scale and color Doppler imaging. 2D grayscale imaging with compression, color Doppler flow, and augmentation was performed. The calf veins were interrogated as well. COMPARISON: None available. FINDINGS: The common femoral, superficial femoral, and popliteal veins are compressible bilaterally. There is normal color Doppler flow within the vessels. Normal waveforms are visualized and there is normal response to augmentation. The calf veins are visualized and are equally unremarkable. IMPRESSION: 1. No evidence of deep vein thrombosis in the lower extremities bilaterally. RPTAT: VV .Diomedes Gallagher MD, MD Date Time Electronically viewed and signed by .Diomedes Gallagher MD, on 03/27/2017 17:25 .PRAKASH DUTTON Mar 27, 2017 19:28
[2017-03-27] MEDS ORDERED: CALCIUM GLUCONATE 10% 2 GM in SOD CHLORIDE 0.9% 100 ML IVPB ONE (21:00)
[2017-03-27] MEDS: SOD CHLORIDE 0.9% 1,000 ML IV SCH (22:10)
[2017-03-27 22:12] LABS: AADO2 Arterial 343.5 mmHg (7.0-24.0); Allen Test ACCEPTAB; Arterial Base Excess -0.9 mmol/L (-3.0-3); Arterial COHb 0.3 % (0.0-3.0); Arterial Fraction of Oxyhgb 88.4 % (93.0-99.0); Arterial HCO3 22.6 mmol/L (22.0-26.0); Arterial MetHb 0.6 % (0.0-1.5); Arterial Total Hemglobin 8.9 g/dl (12.0-18.0); MODE MASK - NRB
[2017-03-27 22:54] LABS: INR 1.01; PROTIME 13.3 Sec (12.2-14.2)
[2017-03-27 22:55] LABS: PARTIAL THROMBOPLASTIN TIME 27.7 Sec (25.0-35.0)
--- NOTE | 2017-03-27 23:38 | RADRPT ---
PROCEDURE: Limited OB ultrasound CLINICAL INDICATION: Placental abruption. TECHNIQUE: Transabdominal imaging of the gravid uterus was performed to assess the placenta. COMPARISON: 03/27/2017. FINDINGS: There are live twin intrauterine pregnancies. Twin A has a cephalic presentation and a heart rate o f 150 bpm. Twin B has a breech presentation and a heart rate of 146 bpm. There is a fundal placenta , grade 2. No evidence of placental abruption is seen. IMPRESSION: 1. Live twin . 2. Fundal placenta without evidence of abruption. RPTAT: HTAR .Negro Sanchez MD, Date Time Electronically viewed and signed by .Negro Sanchez MD, on 03/27/2017 23:38 .R/
[2017-03-27] MEDS: LEVALBUTEROL (NEB) 1.25 MG/0.5 ML AMP HHN PRN (23:39)
[2017-03-27] MEDS: IPRATROPIUM (NEB) 0.5 MG/2.5 ML AMP HHN PRN (23:40)
[2017-03-27] MEDS ORDERED: NIFEdipine 10 MG CAP ONE (23:59)
[2017-03-28] VITALS (14 sets, daily range): BP systolic 106–134; BP diastolic 62–90; PULSE 90–118; RESP 17–37
[2017-03-28 00:02] LABS: ADD SCAN DIFF NO
[2017-03-28 00:04] LABS: ABNORMAL IP MESSAGE 1; HEMATOCRIT 22.7 % (37.0-47.0); HEMOGLOBIN 7.6 g/dl (12.0-16.0); MEAN CORPUSCULAR HEMOGLOBIN 28.5 pg (29.0-33.0); MEAN CORPUSCULAR HGB CONC 33.5 g/dl (32.0-37.0); MEAN PLATELET VOLUME 11.1 fl (7.4-10.4); PLATELET COUNT 161 10^3/UL (140-415); RED BLOOD COUNT 2.67 10^6/ul (4.20-5.40); RED CELL DISTRIBUTION WIDTH 15.9 % (11.5-14.5)
[2017-03-28] MEDS ORDERED: NIFEdipine 10 MG CAP PO ONE ×3 (00:30→01:00)
[2017-03-28 00:34] LABS: MONOCYTE # 1.8 10^3/ul (0.3-0.9); NEUTROPHIL # 12.8 10^3/ul (1.6-7.5); OVALOCYTES FEW; PLATELET ESTIMATE PLT APPEAR ADEQUATE
--- NOTE | 2017-03-28 01:11 | PN ---
Date/Time of Note Date/Time of Note DATE: 03/28/17 TIME: 01:08 OB Subjective Subjective Subjective Late entry note I was called later in the afternoon that the patient continues to have shortness of breath. Chest x-ray reviewed. Showed evidence of mild cardiomegaly with some pulmonary congestion and infiltrates as well as mild pleural effusion. Attended to the patient bedside. Patient complaining of shortness of breath. She feels more comfortable in sitting position. Her oxygen saturation with O2 is around 92-93 percentile. Lungs appears to have some crackles in the base of both lungs. IV fluid had been already decreased to 80 cc/h he was initially started last night at 120 which in the morning switched to 80. Patient will be weaning off of the magnesium Magnesium level therapeutic and there is no evidence of magnesium toxicity Patient had normal patellar reflexes Chest x-ray suspicious for pulmonary edema. Lasix was ordered Medicine consult was ordered We will also evaluate and rule out DVT/PE. Doppler of both lower extremity ordered as well as ABG Discussed with hospitalist to evaluate the patient as soon as possible Cannot rule out cardiomyopathy, heart failure, volume overload. We will continue to monitor closely Decrease IV fluids on the KVO after complete list of magnesium we will continue to monitor LATOYA HINTON MD Mar 28, 2017 01:11
--- NOTE | 2017-03-28 01:17 | PN ---
Date/Time of Note Date/Time of Note DATE: 03/28/17 TIME: 01:12 OB Subjective Subjective Subjective Labs including CBC was ordered by hospitalist. Patient had been seen and evaluated by hospitalist. CBC showed worsening of anemia. There is a concern currently for possible hemolysis versus abruption. Attended to the patient bedside. Had already received Lasix. She feels improvement of her symptoms. Still however feels some shortness of breath. Feels more comfortable in sitting position. She denies any abdominal pain. OB Objective Objective Objective General appearance: Alert and oriented, appears to be in moderate distress. Abdomen, gravid, nontender, fundal height consistent with gestational age. No uterine tenderness, extremities: No calf tenderness, no click No cords palpable, normal patellar reflexes noted. Labs reviewed LDH and BNP ordered that is elevated Cannot rule out cardiomyopathy or heart failure discussed with the hospitalist. OB Assessment/Plan Other Assessment: Twin at 28+ weeks Twin twin transfusion IUGR both twins both had interval growth, Shortness of breath, cardiomegaly, pleural effusion, infiltrates, pulmonary congestion Symptoms are related to pulmonary edema Hospitalist has seen the patient and recommended to be treated as well with pneumonia Patient will continue to get IV Lasix for improvement of her symptoms Labs shows worsening of anemia, LDL elevated, this is consistent with hemolysis Fibrinogen and FDP and coags are normal. No clinical signs and symptoms of abruption Pelvic ultrasound did not show any evidence of abruption Patient and her both are -[place] Cannot rule out sickle cell anemia hemoglobin electrophoresis ordered Patient started to have some contractions after she received Lasix and when she was off of magnesium for more than 9 hours Currently no clinical signs and symptoms of abruption. Fibrinogen normal Consider tocolysis with nifedipine Follow-up by hospitalist Expectant management Patient needs to have tomorrow echocardiogram rule out cardiomyopathy Follow-up with ordered labs. LATOYA HINTON MD Mar 28, 2017 01:17
[2017-03-28] MEDS ORDERED: DIPHTH/TET/ACEL PERTUSS (ADULT) 0.5 ML VIAL IM* ONE (01:30)
[2017-03-28] MEDS: LEVALBUTEROL (NEB) 1.25 MG/0.5 ML AMP HHN SCH ×4 (02:00→21:30)
[2017-03-28] MEDS: IPRATROPIUM (NEB) 0.5 MG/2.5 ML AMP HHN SCH ×4 (02:00→21:31)
[2017-03-28] MEDS: FUROSEMIDE 20 MG INJ IV SCH ×2 (04:38→10:47)
[2017-03-28] MEDS: LEVALBUTEROL (NEB) 1.25 MG/0.5 ML AMP HHN PRN ×2 (04:56→10:39)
[2017-03-28] MEDS: IPRATROPIUM (NEB) 0.5 MG/2.5 ML AMP HHN PRN ×2 (04:56→10:39)
[2017-03-28 05:55] LABS: ADD SCAN DIFF NO
[2017-03-28 06:01] LABS: ABNORMAL IP MESSAGE 1; BASOPHILS % 0.2 % (0.0-2.0); EOSINOPHILS % 0.2 % (0.0-7.0); HEMATOCRIT 26.8 % (37.0-47.0); HEMOGLOBIN 8.8 g/dl (12.0-16.0); LYMPHOCYTES # 0.9 10^3/ul (0.8-2.9); LYMPHOCYTES % 5.5 % (15.0-51.0); MEAN CORPUSCULAR HEMOGLOBIN 28.1 pg (29.0-33.0); MEAN CORPUSCULAR HGB CONC 32.8 g/dl (32.0-37.0); MEAN CORPUSCULAR VOLUME 85.6 fl (82.0-101.0); MEAN PLATELET VOLUME 10.6 fl (7.4-10.4); MONOCYTE # 1.4 10^3/ul (0.3-0.9); MONOCYTES % 8.2 % (0.0-11.0); NEUTROPHIL # 13.4 10^3/ul (1.6-7.5); NEUTROPHILS % 80.8 % (39.0-77.0); NUCLEATED RED BLOOD CELLS # 0.3 10^3/ul (0.0-0.0); NUCLEATED RED BLOOD CELLS% 1.5 /100WBC (0.0-0.0); PLATELET COUNT 178 10^3/UL (140-415); RED BLOOD COUNT 3.13 10^6/ul (4.20-5.40); RED CELL DISTRIBUTION WIDTH 15.5 % (11.5-14.5); WHITE BLOOD COUNT 16.6 10^3/ul (4.8-10.8)
[2017-03-28] MEDS: NIFEdipine 10 MG CAP PO SCH ×3 (06:24→17:14)
[2017-03-28 06:49] LABS: ALBUMIN 3.8 g/dl (3.3-4.9); ALBUMIN/GLOBULIN RATIO 1.46; BILIRUBIN,INDIRECT 0.3 mg/dl (0-1.1); BILIRUBIN,TOTAL 0.3 mg/dl (0.2-1.3); CALCIUM 7.4 mg/dl (8.4-10.2); CREATININE 0.73 mg/dl (0.44-1.00); POTASSIUM 3.8 mmol/L (3.5-5.1); TOTAL PROTEIN 6.4 g/dl (6.1-8.1)
[2017-03-28] MEDS: DEXTROSE 5%-LR 1,000 ML IV SCH ×3 (07:30→23:30)
--- NOTE | 2017-03-28 08:06 | QN ---
Documentation Comment Seen pt. at her bedside. Presently using oxygen and without it saturadition is 90%. Pulse is 126. Pt. receiving 2 units of PRBC due to drop of Hg. Pt. still continues to pass blood clots occassionally The NST is reactive Pt. was experiencing uterine ctxs last night and is on Procardia Awaiting the consult by cardiology to see her to R/O cardiac problem and PE. ( CT scan ordered). Explained to the pt. regarding the circumstances and my advice to deliver her when stable due to maternal effects and bleeding JULIO PEÑALOZA MD Mar 28, 2017 08:05
[2017-03-28] MEDS: FERROUS SULFATE (EC) 325 MG TAB PO SCH (09:00)
[2017-03-28] MEDS: MULTIVIT/MIN/FOLATE/IRON/PREN TAB PO SCH (09:00)
--- NOTE | 2017-03-28 10:23 | CONS ---
Date/Time of Note Date/Time of Note DATE: 03/28/17 TIME: 10:18 Assessment/Plan Assessment/Plan Additional Assessment/Plan Chest x-ray was reviewed from yesterday which is showing cardiomegaly with bilateral pulmonary vascular congestion. Difficult to rule out basilar infiltrative changes. Assessment and recommendations; 1. Patient admitted for anemia as well as what appears to be pulmonary edema. Need out -induced cardiomyopathy. 2. Status post blood confusion. 3. Difficult to rule out bibasilar pneumonia, patient does have significant leukocytosis. 4. Currently with twins complicated by cord ablation and transfusion. Obtain follow-up chest x-ray. Add Zosyn 3.375 g every 8 hours. Continue Zithromax. If the chest x-ray findings are not improved in the patient's condition worsens then I would recommend delivering the twins. Meanwhile decrease FiO2 to keep O2 saturation around 90-94%. Consultation Date/Type/Reason Admit Date/Time Mar 24, 2017 at 16:08 Date of Consultation: Mar 28, 2017 Type of Consultation: Pulmonary/critical care Reason for Consultation Pulmonary consultations requested for evaluation of shortness of breath and hypoxemia. History of presenting any; patient is a 31-year-old white woman who came into the emergency room yesterday with a 2 day history of increasing shortness of breath. Upon evaluation a chest x-ray was done which is showing pulmonary vascular congestion with bilateral lower lobe infiltrative changes. Patient according to her was fine until 2 days ago the symptoms started. She denies any high fever chills wheezing completely very scant cough without any sputum production. Patient also was quite anemic. And has received 2 units packed RBCs. On supplemental oxygen patient is feeling better. Patient also was given Lasix with improvement in symptoms as well. Patient denies any history of any prior respiratory illnesses. Past medical history; 1. Patient currently with twins, complicated by transfusion as well as cord ablation. Is a viable . 2. No other underlying medical illnesses. No history of any surgeries. Medications; reviewed. Allergies; none. Social history; patient has a history of marijuana use. Has not smoked during . Family history; she is single. No history of any illnesses in the family. 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 Review of systems; denies any headache, visual changes. Any seizures. Any sinus symptoms. Denies any chest pain, angina, wheezing. Shortness of breath is improving. Denies any abdominal pain, nausea vomiting. Complains of very mild orthopnea. Has gained weight during . Denies any new arthritis symptoms or skin changes. Denies any melena hematochezia or urinary symptoms. Nicki; young woman, awake and alert. Currently in no distress. Psychological: anxiety Past Medical History Medical History: no pertinent history Past Surgical History Past Surgical Hx: no surgical history Social History Alcohol Use: none Smoking Status: Never smoker Drug Use: none Exam/Review of Systems Vital Signs Vitals Vital Signs Date Time Temp Pulse Resp B/P Pulse Ox O2 Delivery O2 Flow Rate FiO2 03/28/17 04:57 110 26 94 Non Rebreather Mask 15.0 100 03/24/17 14:25 98.2 113/71 Intake and Output 03/27/17 03/27/17 03/28/17 15:00 23:00 07:00 Intake Total 2135 ml 340 ml 490 ml Output Total 1250 ml 1700 ml 1300 ml Balance 885 ml -1360 ml -810 ml Exam HEENT exam is; supple neck, no JVD. No lymphadenopathy. Midline trachea. No thyromegaly. Pupils are midsize and reactive to light bilaterally. Pharynx is clear. Patient has good dentition. Chest exam; diminished but clear vessel. S1-S2 audible, no murmurs. Regular rhythm. Abdomen exam is; protuberant. Nontender. Bowel sounds audible. No organomegaly. Extremity examination; no peripheral edema. Pulses 1+ bilaterally. Extremity examination; no peripheral edema. Pulses 1+ bilaterally. UROLOGY NURSE examination; no focal deficit. Results Result Diagram: 03/28/17 0520 03/28/17 0520 Results 24 hrs Laboratory Tests Test 03/27/17 13:33 03/27/17 17:58 03/27/17 18:37 03/27/17 22:05 Magnesium Level 5.7 *H White Blood Count 15.6 #H 16.0 H Red Blood Count 2.62 L 2.67 L Hemoglobin 7.3 L 7.6 L Hematocrit 22.5 L 22.7 L Mean Corpuscular Volume 85.9 85.0 Mean Corpuscular Hemoglobin 27.9 L 28.5 L Mean Corpuscular Hemoglobin Concent 32.4 33.5 Red Cell Distribution Width 15.8 H 15.9 H Platelet Count 160 161 Mean Platelet Volume 10.3 11.1 H Neutrophils % 87.0 H 80.0 H Band Neutrophils % 1.0 Lymphocytes % 6.0 L 6.0 L Monocytes % 5.0 11.0 Eosinophils % 1.0 Nucleated Red Blood Cells % 2.0 H 1.0 H Neutrophils # 13.6 H 12.8 H Lymphocytes # 0.9 1.0 Monocytes # 0.8 1.8 H Eosinophils # 0.2 Platelet Estimate PLT APPEAR ADEQUATE PLT APPEAR ADEQUATE Anisocytosis OCCASIONAL Macrocytosis OCCASIONAL Sodium Level 137 Potassium Level 3.5 Chloride Level 108 Carbon Dioxide Level 19 L Anion Gap 14 Blood Urea Nitrogen 5 L Creatinine 0.64 Glucose Level 126 Calcium Level 6.2 L Blood Gas Specimen Source Blood arterial Arterial Blood Date Drawn 03/27/2017 10:00:26 PM Arterial Blood pH (Temp corrected) 7.458 H Arterial Blood pCO2 (Temp correct) 32.7 L Arterial Blood pO2 (Temp corrected) 55.5 L Arterial Blood HCO3 22.6 Arterial Blood Base Excess -0.9 Arterial Blood Oxygen Saturation 89.2 L Jeramie Test ACCEPTAB Arterial Blood Gas Puncture Site Right Radial Arterial Blood Carboxyhemoglobin 0.3 Arterial Blood Methemoglobin 0.6 Blood Gas A-a O2 Differential 343.5 H Oxyhemoglobin Percent 88.4 L Total Hemoglobin 8.9 L Blood Gas Temperature 37.0 Blood Gas Modality MASK - NRB FiO2 61.0 Blood Gas Notified Whom Petrona BOOTHE Blood Gas Notified Time 03/27/2017 10:11:50 PM Reactive Lymphocytes % 1.0 Metamyelocytes % 2.0 H Metamyelocytes # 0.3 Ovalocytes FEW Kleihauer-Betke Stain 0.0000 Prothrombin Time 13.3 Prothrombin Time Ratio 1.0 INR International Normalized Ratio 1.01 Activated Partial Thromboplast Time 27.7 Fibrinogen 309.0 Lactate Dehydrogenase 890 H B-Type Natriuretic Peptide 1660 H Test 03/28/17 05:20 White Blood Count 16.6 H Red Blood Count 3.13 L Hemoglobin 8.8 L Hematocrit 26.8 L Mean Corpuscular Volume 85.6 Mean Corpuscular Hemoglobin 28.1 L Mean Corpuscular Hemoglobin Concent 32.8 Red Cell Distribution Width 15.5 H Platelet Count 178 Mean Platelet Volume 10.6 H Neutrophils % 80.8 H Lymphocytes % 5.5 L Monocytes % 8.2 Eosinophils % 0.2 Basophils % 0.2 Nucleated Red Blood Cells % 1.5 H Neutrophils # 13.4 H Lymphocytes # 0.9 Monocytes # 1.4 H Eosinophils # 0.0 Basophils # 0.0 Nucleated Red Blood Cells # 0.3 H Sodium Level 137 Potassium Level 3.8 Chloride Level 107 Carbon Dioxide Level 22 Anion Gap 12 Blood Urea Nitrogen 5 L Creatinine 0.73 Glucose Level 117 Hemoglobin A1c 5.3 Calcium Level 7.4 L Total Bilirubin 0.3 Direct Bilirubin 0.00 Indirect Bilirubin 0.3 Aspartate Amino Transf (AST/SGOT) 106 H Alanine Aminotransferase (ALT/SGPT) 102 H Alkaline Phosphatase 192 H Total Protein 6.4 Albumin 3.8 Globulin 2.60 Albumin/Globulin Ratio 1.46 Medications Medications Current Medications Dimethicone 1 applic 1 applic Q2H PRN TOP CHAPPED LIPS Last administered on 15:55; Admin Dose 1 APPLIC; Start 03/24/17 at 15:30 Lactated Ringer's 1,000 ml @ 125 mls/hr Q8H IV Last administered on 03/27/17 13:56; Admin Dose 125 MLS/HR; Start 03/24/17 at 16:10; Status Future Hold Dextrose/Lactated Ringer's 1,000 ml @ 125 mls/hr Q8H IV Last administered on 07:39; Admin Dose 125 MLS/HR; Start 03/25/17 at 07:30 Azithromycin/ Sodium Chloride (Zithromax/NS) 250 ml @ 250 mls/hr Q24H IVPB Last administered on 03/27/17 15:47; Admin Dose 250 MLS/HR; Start 03/26/17 at 14:00; Stop 03/31/17 at 14:00 Prenat Multivit/ Director Global Sales/Iron/Folic Ac ( S) 1 tab DAILY PO Last administered on 03/27/17 09:46; Admin Dose 1 TAB; Start 03/25/17 at 16:00 Ferrous Sulfate 325 mg 325 mg DAILY PO Last administered on 03/27/17 09:46; Admin Dose 325 MG; Start 03/25/17 at 16:30 Ceftriaxone Sodium 50 ml @ 100 mls/hr Q24H IVPB Last administered on 20:00; Admin Dose 100 MLS/HR; Start 03/27/17 at 20:00 Sodium Chloride (NS) 1,000 ml @ 60 mls/hr [id number] IV Last administered on 03/27 22:10; Admin Dose 60 MLS/HR; Start 03/27/17 at 22:00 Nifedipine (Procardia) 20 mg Q6 PO Last administered on 03/28/17 06:24; Admin Dose 20 MG; Start 03/28/17 at 06:00 LUTHER MORROW Mar 28, 2017 10:23
--- NOTE | 2017-03-28 11:29 | PN ---
Date/Time of Note Date/Time of Note DATE: 03/28/17 TIME: 11:20 Assessment/Plan Lines/Catheters IV C[facility]ter Type ([facility] Peripheral IV Assessment/Plan Chief Complaint/Hosp Course 31-year-old female with the following who originally pesented with contractions and is now managed for : 1. Acute shortness of breath with pulmonary congestion and bilateral pleural effusions on chest x-ray: * Patient now requiring 15L via face mask 2. 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 Hypochromic anemia with hemoglobin of 7.5: s/p transfusion of 2 units PRBCs yesterday 4. Hypocalcemia: replenished 5. Bilateral Pneumonia 6. G Vaginalis UTI 7. Transaminitis 8. Sepsis 2/2 Pneumonia 9. Occasional vaginal bleeding per hazardous substances scientist Recommendations: * Continue ICU support and management at this time * Patient reviewed multiple times and also with extensive discussion with pulmonary, obstetrics, as well as perinatology. * Patient to be maintained in the intensive care unit for now. Pulmonary is recommending holding off on CAT scan, and following up on chest x-ray instead. Pulmonary feels symptoms may be secondary to bilateral pneumonia only. He has low suspicion for pulmonary emboli. * Antibiotic spectrum has been broadened even for however, patient continues on maintenance dose Lasix. / Echo report still pending * Close ICU monitoring. Further interventions per clinical course * Low threshold to deliver babies if indicated. Critical care time greater than 1 hour. Problems: Exam/Review of Systems Vital Signs Vitals Vital Signs Date Time Temp Pulse Resp B/P Pulse Ox O2 Delivery O2 Flow Rate FiO2 03/28/17 10:00 99.3 37 130/73 98 Non Rebreather 03/28/17 09:45 110 03/28/17 04:57 15.0 100 Intake and Output 03/27/17 03/27/17 03/28/17 14:59 22:59 06:59 Intake Total 2260 ml 280 ml 550 ml Output Total 1250 ml 1700 ml 1300 ml Balance 1010 ml -1420 ml -750 ml Results Result Diagram: 03/28/17 0520 03/28/17 0520 Results 24 hrs Laboratory Tests Test 03/27/17 13:33 03/27/17 17:58 03/27/17 18:37 03/27/17 22:05 Magnesium Level 5.7 *H White Blood Count 15.6 #H 16.0 H Red Blood Count 2.62 L 2.67 L Hemoglobin 7.3 L 7.6 L Hematocrit 22.5 L 22.7 L Mean Corpuscular Volume 85.9 85.0 Mean Corpuscular Hemoglobin 27.9 L 28.5 L Mean Corpuscular Hemoglobin Concent 32.4 33.5 Red Cell Distribution Width 15.8 H 15.9 H Platelet Count 160 161 Mean Platelet Volume 10.3 11.1 H Neutrophils % 87.0 H 80.0 H Band Neutrophils % 1.0 Lymphocytes % 6.0 L 6.0 L Monocytes % 5.0 11.0 Eosinophils % 1.0 Nucleated Red Blood Cells % 2.0 H 1.0 H Neutrophils # 13.6 H 12.8 H Lymphocytes # 0.9 1.0 Monocytes # 0.8 1.8 H Eosinophils # 0.2 Platelet Estimate PLT APPEAR ADEQUATE PLT APPEAR ADEQUATE Anisocytosis OCCASIONAL Macrocytosis OCCASIONAL Sodium Level 137 Potassium Level 3.5 Chloride Level 108 Carbon Dioxide Level 19 L Anion Gap 14 Blood Urea Nitrogen 5 L Creatinine 0.64 Glucose Level 126 Calcium Level 6.2 L Blood Gas Specimen Source Blood arterial Arterial Blood Date Drawn 03/27/2017 10:00:26 PM Arterial Blood pH (Temp corrected) 7.458 H Arterial Blood pCO2 (Temp correct) 32.7 L Arterial Blood pO2 (Temp corrected) 55.5 L Arterial Blood HCO3 22.6 Arterial Blood Base Excess -0.9 Arterial Blood Oxygen Saturation 89.2 L Jeramie Test ACCEPTAB Arterial Blood Gas Puncture Site Right Radial Arterial Blood Carboxyhemoglobin 0.3 Arterial Blood Methemoglobin 0.6 Blood Gas A-a O2 Differential 343.5 H Oxyhemoglobin Percent 88.4 L Total Hemoglobin 8.9 L Blood Gas Temperature 37.0 Blood Gas Modality MASK - NRB FiO2 61.0 Blood Gas Notified Whom Petrona BOOTHE Blood Gas Notified Time 03/27/2017 10:11:50 PM Reactive Lymphocytes % 1.0 Metamyelocytes % 2.0 H Metamyelocytes # 0.3 Ovalocytes FEW Kleihauer-Betke Stain 0.0000 Prothrombin Time 13.3 Prothrombin Time Ratio 1.0 INR International Normalized Ratio 1.01 Activated Partial Thromboplast Time 27.7 Fibrinogen 309.0 Lactate Dehydrogenase 890 H B-Type Natriuretic Peptide 1660 H Test 03/28/17 05:20 White Blood Count 16.6 H Red Blood Count 3.13 L Hemoglobin 8.8 L Hematocrit 26.8 L Mean Corpuscular Volume 85.6 Mean Corpuscular Hemoglobin 28.1 L Mean Corpuscular Hemoglobin Concent 32.8 Red Cell Distribution Width 15.5 H Platelet Count 178 Mean Platelet Volume 10.6 H Neutrophils % 80.8 H Lymphocytes % 5.5 L Monocytes % 8.2 Eosinophils % 0.2 Basophils % 0.2 Nucleated Red Blood Cells % 1.5 H Neutrophils # 13.4 H Lymphocytes # 0.9 Monocytes # 1.4 H Eosinophils # 0.0 Basophils # 0.0 Nucleated Red Blood Cells # 0.3 H Sodium Level 137 Potassium Level 3.8 Chloride Level 107 Carbon Dioxide Level 22 Anion Gap 12 Blood Urea Nitrogen 5 L Creatinine 0.73 Glucose Level 117 Hemoglobin A1c 5.3 Calcium Level 7.4 L Total Bilirubin 0.3 Direct Bilirubin 0.00 Indirect Bilirubin 0.3 Aspartate Amino Transf (AST/SGOT) 106 H Alanine Aminotransferase (ALT/SGPT) 102 H Alkaline Phosphatase 192 H Total Protein 6.4 Albumin 3.8 Globulin 2.60 Albumin/Globulin Ratio 1.46 Medications Medications Current Medications Dimethicone 1 applic 1 applic Q2H PRN TOP CHAPPED LIPS Last administered on 15:55; Admin Dose 1 APPLIC; Start 03/24/17 at 15:30 Lactated Ringer's 1,000 ml @ 125 mls/hr Q8H IV Last administered on 03/27/17 13:56; Admin Dose 125 MLS/HR; Start 03/24/17 at 16:10; Status Future Hold Dextrose/Lactated Ringer's 1,000 ml @ 125 mls/hr Q8H IV Last administered on 07:39; Admin Dose 125 MLS/HR; Start 03/25/17 at 07:30 Azithromycin/ Sodium Chloride (Zithromax/NS) 250 ml @ 250 mls/hr Q24H IVPB Last administered on 03/27/17 15:47; Admin Dose 250 MLS/HR; Start 03/26/17 at 14:00; Stop 03/31/17 at 14:00 Prenat Multivit/ Motor Vehicle Inspector/Iron/Folic Ac ( S) 1 tab DAILY PO Last administered on 03/27/17 09:46; Admin Dose 1 TAB; Start 03/25/17 at 16:00 Ferrous Sulfate 325 mg 325 mg DAILY PO Last administered on 03/27/17 09:46; Admin Dose 325 MG; Start 03/25/17 at 16:30 Sodium Chloride (NS) 1,000 ml @ 60 mls/hr [id number] IV Last administered on 03/27 22:10; Admin Dose 60 MLS/HR; Start 03/27/17 at 22:00 Nifedipine 20 mg 20 mg Q6 PO Last administered on 03/28/17 06:24; Admin Dose 20 MG; Start 03/28/17 at 06:00 Piperacillin Sod/ Tazobactam Sod (Zosyn 3.375gm/ 100 ml (Pmx)) 100 ml @ 200 mls /hr Q8 IVPB ; Start 03/28/17 at 12:00 PRAKASH REYES Mar 28, 2017 11:29
--- NOTE | 2017-03-28 11:32 | RADRPT ---
PROCEDURE: XR Chest. CLINICAL INDICATION: 31-year-old 28 weeks female and respiratory distress. TECHNIQUE: Single frontal view of the chest was obtained. COMPARISON: Chest x-ray 03/27/2017 02:34 p.m.. FINDINGS: The soft tissues are normal . An oxygen cannula is draped across the right shoulder.. The bony kwame ments are normal. The heart is enlarged. The cardiomediastinal silhouette and hilar structures are normal. The pulmonary vasculature is increased. There is a left-sided aorta. There are bilateral p erihilar and basilar infiltrates which have worsened slightly in the lower lung casiano when compared to the prior study. bilateral pleural effusions are present. IMPRESSION: 1. Congestive heart failure with worsening perihilar and basilar pulmonary edema with bilateral pleu ral effusions. RPTAT:AAJJ Physician Lloyd Date Time Electronically viewed and signed by Physician Lloyd on 03/28/2017 11:31 AUDREY/
[2017-03-28 12:11] LABS: HEMATOCRIT 26.6 % (37.0-47.0); HEMOGLOBIN 8.8 g/dl (12.0-16.0)
--- NOTE | 2017-03-28 12:15 | RADRPT ---
Echocardiogram Report Patient Name: SHAMAR DURAN Gender: Female Date: 1985 Study Date: 28-Mar-2017 Dishroom Attendant: Galileo Cordova RDCS Location: [facility] Ref. Physician: LATOYA HINTON Quality: Good Procedures: Transthoracic echocardiogram with complete 2D, M-Mode, and doppler examination. Indications: Pulmonary vascular congestion. 2D/M Mode Doppler Measurement Value Normal Ranges Measurement Value Normal Ranges LVIDd 2D 4.6 3.5 - 5.6 cm AV Mean Leonel 1.5 m/sec LVIDs 2D 2.3 2.1 - 4.1 cm AV Mean PG 11.0 mmHg FS 2D 49.5 % AV Peak Leonel 2.5 m/sec LVPWd 2D 0.9 0.6 - 1.1 cm AV Peak PG 24.0 mmHg IVSd 2D 0.9 0.6 - 1.1 cm AV VTI 39.5 cm IVS/LVPW 2D 0.8 LVOT Mean Leonel 1.0 m/sec AoR Diam 2D 2.8 2.0 - 3.7 cm LVOT Mean PG 5.0 mmHg LA/Ao 2D 1 0 - 1 LVOT Peak Leonel 1.6 m/sec EDV 2D 99.3 cm3 LVOT Peak PG 11.0 mmHg ESV 2D 12.8 cm3 LVOT VTI 28.3 cm LA Dimen 2D 3.7 2.3 - 4.0 cm TR Peak Leonel 3.4 m/sec TR Peak PG 47.0 mmHg RVSP 50.0 mmHg Findings Left Ventricle: Normal left ventricular systolic function. Normal left ventricular cavity size. Normal left ventricular wall thickness. Ejection fraction is visually estimated at 65 %. Tissue Doppler/Mitral Doppler indices are within normal limits. Right Ventricle: Normal right ventricular size. Normal right ventricular systolic function. Left Atrium: The left atrium is normal in size. Right Atrium: The right atrium is normal in size. Mitral Valve: Normal appearance and function of the mitral valve with trace physiologic regurgitation. Aortic Valve: Normal appearance of the aortic valve. No significant aortic stenosis or insufficiency. Tricuspid Valve: Normal appearance and function of the tricuspid valve with trace physiologic regurgitation. Estimated peak PA systolic pressure 50 mmHg. Pulmonic Valve: Normal pulmonic valve appearance. Pericardium: Normal pericardium with no significant pericardial effusion. Aorta: Normal aortic root. IVC: Normal size and normal respiratory collapse consistent with normal right atrial pressure. Conclusions 1.Normal left ventricular systolic function. Normal left ventricular cavity size. Normal left ventricular wall thickness. Ejection fraction is visually estimated at 65 %. Tissue Doppler/Mitral Doppler indices are within normal limits. 2.Normal right ventricular size. Normal right ventricular systolic function. 3.The left atrium is normal in size. 4.The right atrium is normal in size. 5.Estimated peak PA systolic pressure 50 mmHg. 6.No significant valvular stenosis or regurgitation seen. 7.Normal pericardium with no significant pericardial effusion. Electronically Signed By: Bhavesh Watters 28-Mar-2017 12:13:42 -3700 Patient Name: SHAMAR DURAN Study Date: 28-Mar-2017 [id number]
[2017-03-28] MEDS: PIPER-TAZO 3.375 GM IV (PMX) 100 ML IVPB SCH ×2 (12:21→21:48)
[2017-03-28] MEDS: SOD CHLORIDE 0.9% 1,000 ML IV SCH (15:29)
[2017-03-28] MEDS: AZITHROMYCIN 250 MG in SOD CHLORIDE 0.9% 250 ML IVPB SCH (15:38)
--- NOTE | 2017-03-28 15:46 | RADRPT ---
Vent Rate: 107 bpm RR Interval: 0 msec PA Interval: 148 msec QRS Duration: 84 msec QT Interval: 358 msec QTC Interval: 477 msec P-R-T [place]: 39 - 38 - 37 degrees Sinus tachycardia Otherwise normal ECG Electronically Signed By: Bhavesh Watters [id number]
[2017-03-28] MEDS: TETRAHYDROZOLINE 0.05% 15 ML OPH BOTH EYES SCH (21:48)
[2017-03-29] VITALS (24 sets, daily range): BP systolic 115–147; BP diastolic 60–100; PULSE 90–130; RESP 16–42
[2017-03-29] MEDS: NIFEdipine 10 MG CAP PO SCH ×4 (00:26→18:17)
[2017-03-29] MEDS: IPRATROPIUM (NEB) 0.5 MG/2.5 ML AMP HHN SCH ×4 (02:07→20:06)
[2017-03-29] MEDS: LEVALBUTEROL (NEB) 1.25 MG/0.5 ML AMP HHN SCH ×4 (02:07→20:06)
[2017-03-29 03:13] LABS: HEMATOCRIT 26.5 % (35.0-45.0); HEMOGLOBIN 9.1 g/dL (11.7-15.5); MCH 28.2 pg (27.0-33.0); RDW 14.6 % (11.0-15.0); RED BLOOD CELL COUNT 3.23 Million/uL (3.80-5.10)
[2017-03-29] MEDS: PIPER-TAZO 3.375 GM IV (PMX) 100 ML IVPB SCH ×3 (06:00→21:59)
--- NOTE | 2017-03-29 06:16 | CONS ---
DATE OF ADMISSION: 03/24/2017 DATE OF CONSULTATION: 03/27/2017 PROGRESS NOTE HISTORY OF PRESENT ILLNESS: I received a call this morning from Dr. Dye, primary burial vault setter, misha clark the patient had been transferred to the ICU after she experienced shortness of breath. In this n ote I will essentially summarize what happened after my initial note. She was initially placed on m agnesium and betamethasone; however, after magnesium sulfate was stopped, it was restarted again on Saturday night because she started having contractions. Then essentially about late Saturday she st arted having problems with shortness of breath and she was diagnosed with pulmonary edema. She was given Lasix, after which she diuresed; however, her O2 saturations continued to be at 90% on room ox ygen. She was transferred to the ICU. Pulmonology was consulted. Pulmonology believes that this is evidence of pneumonia, and she was sta rted on Zosyn essentially about noon on March 27 echocardiogram was performed which is normal. Chest x-ray was done which shows pleural effusi on and evidence of congestive heart failure; however, congestive heart failure is very unlikely sinc e echocardiogram is completely normal. The decision was made to perform a CT scan to diagnose pulmonary embolus; however, pulmonology is ad amant about this not being secondary to pulmonary embolus. They discussed with Dr. Dye and the d ecision was made to defer the CT scan. We are not able to place the patient on Lovenox pending CT s can, since she essentially has had some more vaginal bleeding this morning. So overall currently she is being treated for pneumonia, on Zosyn. She also is receiving nebulizer treatments, which she mentions is very helpful to her. She does mention that yesterday after the treatment she had some greenish phlegm. I did check on her again about 3:40 this afternoon. Her O2 saturation has improved and she is curre ntly on nasal cannula; however, she asked to be replaced by the mask, but the O2 from 15 liters had been decreased to 5 liters and she does saturate to about 98% on 5 liters of oxygen. heart tone status remains normal. She is on continuous heart tone monitoring. RECOMMENDATIONS: If the patient does not improve until tomorrow, I do recommend a CT scan. It is i mportant to mention that the father of the patient does have a history of a pulmonary embolus with a ny unknown etiology. Otherwise, continue Zosyn at this time. Also she has a Jerez in. Please continue with strict monit oring of ins and outs. Monitor for hemoglobin, as her hemoglobin dropped about 1.5 within 2 days, for which she received a 2 units of packed red blood cells today. Delivery is not recommended as of the time that I left the hospital, as the status was normal and maternal status at least slightly improved. Also unless the patient is stabilized, it will jeop ardize both maternal and health if the delivery is performed. I spoke to Dr. Min, NICU, and he did recommend for the patient to be transferred to [facility] to be close to [facility], as he does not believe that the status of the fetus if d elivery is attempted within the next few days is going to be very optimal, as they used to be severe ly growth restricted, but as of March 21 the estimated weight was at 10 and 13 percentile, res pectively. I did recommend that she should speak to Dr. Dye. However, unless the patient is stable, again, I would defer transfer if the decision is made to do so. I spoke to Dr. Dye, the nurse and the patient multiple times. Dictated By: EMILEE RAMOS/AMBAR Conf#: [id number] DID#: [id number]
[2017-03-29] MEDS: SOD CHLORIDE 0.9% 1,000 ML IV SCH ×2 (08:08→22:53)
[2017-03-29] MEDS: MULTIVIT/MIN/FOLATE/IRON/PREN TAB PO SCH (08:43)
[2017-03-29] MEDS: FERROUS SULFATE (EC) 325 MG TAB PO SCH (08:44)
[2017-03-29] MEDS: TETRAHYDROZOLINE 0.05% 15 ML OPH BOTH EYES SCH ×4 (08:44→21:05)
--- NOTE | 2017-03-29 09:17 | PN ---
Date/Time of Note Date/Time of Note DATE: 03/29/17 TIME: : Assessment/Plan VTE Prophylaxis VTE Prophylaxis Intervention: SCD's Lines/Catheters [facility]from [facility] Peripheral IV Urinary Cath still in place: No (nurses to d/c today) Assessment/Plan Chief Complaint/Hosp Course 31-year-old female with the following who originally pesented with contractions and is now managed for : 1. Acute shortness of breath 2/2 Pneumonia and vasc congestion: * Much improved / patient only on intermittent NC * Echo shows elevated peak PA pressure of 50 2. 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 Hypochromic anemia with hemoglobin of 7.5: s/p transfusion of 2 units PRBCs yesterday 4. Hypocalcemia: replenished 5. Bilateral Pneumonia 6. G Vaginalis UTI 7. Transaminitis 8. Sepsis 2/2 Pneumonia: improved 9. Occasional vaginal bleeding per carry in worker 10. contraction Recommendations: * Continue ICU support and management at this time till cleared for transfer out of ICU by pulm * Continue gentle diuresis * Continue Zosyn / bronchodilator therapy * Patient on Nifedipine for contraction per OB * Tachycardia likely 2/2 B agonist tx and hyperdynamic state * Further interventions per clinical course * monitoring per OB/ supportive care . Problems: Subjective 24 Hr Interval Summary Free Text/Dictation Patient seen she's doing much better sitting on the edge of the bed and eating breakfast without requiring O2 at this time, patient however tells me she still needs it on and off desires danielson removed Exam/Review of Systems Vital Signs Vitals Vital Signs Date Time Temp Pulse Resp B/P Pulse Ox O2 Delivery O2 Flow Rate FiO2 03/29/17 06:00 93 31 127/75 97 Venturi Mask 15.0 03/29/17 04:00 98.9 03/29/17 02:08 50 Intake and Output 03/28/17 03/28/17 03/29/17 15:00 23:00 07:00 Intake Total 400 ml 2427 ml 810 ml Output Total 2350 ml 770 ml Balance 400 ml 77 ml 40 ml Exam Constitutional: alert, oriented, No distress Head: atraumatic, normocephalic Eyes: PERRL ENMT: mucosa pink and moist Neck: supple Respiratory: crackles/rales (LLB), diminished breath sounds Cardiovascular: other (tachycardic without murmurs) Gastrointestinal: other (gravid / non tender) Extremities: No edema Neurological: nl mental status, nl speech Results Result Diagram: 03/28/17 1140 03/28/17 0520 Results 24 hrs Laboratory Tests Test 03/28/17 11:40 03/29/17 04:55 Hemoglobin 8.8 L Hematocrit 26.6 L Lab Scanned Report BLOOD TRANSFUSION Medications Medications Current Medications Dimethicone 1 applic 1 applic Q2H PRN TOP CHAPPED LIPS Last administered on 15:55; Admin Dose 1 APPLIC; Start 03/24/17 at 15:30 Azithromycin/ Sodium Chloride (Zithromax/NS) 250 ml @ 250 mls/hr Q24H IVPB Last administered on 03/28/17 15:38; Admin Dose 250 MLS/HR; Start 03/26/17 at 14:00; Stop 03/31/17 at 14:00 Prenat Multivit/ [place]/Iron/Folic Ac ( S) 1 tab DAILY PO Last administered on 03/29/17 08:43; Admin Dose 1 TAB; Start 03/25/17 at 16:00 Ferrous Sulfate 325 mg 325 mg DAILY PO Last administered on 03/29/17 08:44; Admin Dose 325 MG; Start 03/25/17 at 16:30 Sodium Chloride 1,000 ml @ 60 mls/hr [id number] IV Last administered on 08:08; Admin Dose 60 MLS/HR; Start 03/27/17 at 22:00 Piperacillin Sod/ Tazobactam Sod (Zosyn 3.375gm/ 100 ml (Pmx)) 100 ml @ 200 mls /hr Q8 IVPB Last administered on 03/29/17 06:00; Admin Dose 200 MLS/HR; Start 03/28/17 at 12:00 Tetrahydrozoline HCl (Geneyes Oph) 1 drop 09,13,17,21 BOTH EYES Last administered on 03/29/17 08:44; Admin Dose 1 DROP; Start 03/28/17 at 21:00 Nifedipine (Procardia) 10 mg Q6 PO Last administered on 03/29/17 06:00; Admin Dose 10 MG; Start 03/28/17 at 17:30; Stop 04/28/17 at 17:29 Procedures Procedures Procedures: Transthoracic echocardiogram with complete 2D, M-Mode, and doppler examination. Indications: Pulmonary vascular congestion. 2D/M Mode Doppler Measurement Value Normal Ranges Measurement Value Normal Ranges LVIDd 2D 4.6 3.5 - 5.6 cm AV Mean Leonel 1.5 m/sec LVIDs 2D 2.3 2.1 - 4.1 cm AV Mean PG 11.0 mmHg FS 2D 49.5 % AV Peak Leonel 2.5 m/sec LVPWd 2D 0.9 0.6 - 1.1 cm AV Peak PG 24.0 mmHg IVSd 2D 0.9 0.6 - 1.1 cm AV VTI 39.5 cm IVS/LVPW 2D 0.8 LVOT Mean Leonel 1.0 m/sec AoR Diam 2D 2.8 2.0 - 3.7 cm LVOT Mean PG 5.0 mmHg LA/Ao 2D 1 0 - 1 LVOT Peak Leonel 1.6 m/sec EDV 2D 99.3 cm3 LVOT Peak PG 11.0 mmHg ESV 2D 12.8 cm3 LVOT VTI 28.3 cm LA Dimen 2D 3.7 2.3 - 4.0 cm TR Peak Leonel 3.4 m/sec TR Peak PG 47.0 mmHg RVSP 50.0 mmHg Findings Left Ventricle: Normal left ventricular systolic function. Normal left ventricular cavity size. Normal left ventricular wall thickness. Ejection fraction is visually estimated at 65 %. Tissue Doppler/Mitral Doppler indices are within normal limits. Right Ventricle: Normal right ventricular size. Normal right ventricular systolic function. Left Atrium: The left atrium is normal in size. Right Atrium: The right atrium is normal in size. Mitral Valve: Normal appearance and function of the mitral valve with trace physiologic regurgitation. Aortic Valve: Normal appearance of the aortic valve. No significant aortic stenosis or insufficiency. Tricuspid Valve: Normal appearance and function of the tricuspid valve with trace physiologic regurgitation. Estimated peak PA systolic pressure 50 mmHg. Pulmonic Valve: Normal pulmonic valve appearance. Pericardium: Normal pericardium with no significant pericardial effusion. Aorta: Normal aortic root. IVC: Normal size and normal respiratory collapse consistent with normal right atrial pressure. Conclusions 1. Normal left ventricular systolic function. Normal left ventricular cavity size. Normal left ventricular wall thickness. Ejection fraction is visually estimated at 65 %. Tissue Doppler/Mitral Doppler indices are within normal limits. 2. Normal right ventricular size. Normal right ventricular systolic function. 3. The left atrium is normal in size. 4. The right atrium is normal in size. 5. Estimated peak PA systolic pressure 50 mmHg. 6. No significant valvular stenosis or regurgitation seen. 7. Normal pericardium with no significant pericardial effusion. Electronically Signed By: Bhavesh Watters 28-Mar-2017 12:13:42 -0700 Patient Name: SHAMAR DURAN PRAKASH REYES Mar 29, 2017 09:17
--- NOTE | 2017-03-29 10:01 | CONS ---
Date/Time of Note Date/Time of Note DATE: 03/29/17 TIME: 09:59 Assessment/Plan Assessment/Plan Additional Assessment/Plan Assessment recommendations; 1. Patient admitted for severe shortness of breath due to combination of pulmonary edema and bilateral pneumonia, clinically much improved. 2. Patient currently with twins, has been complicated by requirement for to transfusion as well as cord ablation. 3. Anemia, status post blood confusion. Continue current treatment. Patient responding well to current treatment regimen. Consultation Date/Type/Reason Admit Date/Time Mar 24, 2017 at 16:08 Initial Consult Date 03/28/17 Type of Consultation: Pulmonary/critical care 24 HR Interval Summary Free Text/Dictation Patient condition is markedly improved. She is currently sitting at the edge of the bed. Denies any chest pain, fever, chills, complains of scant cough with very scant sputum production. Denies any hemoptysis. Denies any chest pain. Denies any abdominal pain, nausea vomiting. General exam; young woman, awake alert currently in no distress. Exam/Review of Systems Vital Signs Vitals Vital Signs Date Time Temp Pulse Resp B/P Pulse Ox O2 Delivery O2 Flow Rate FiO2 03/29/17 06:00 93 31 127/75 97 Venturi Mask 15.0 03/29/17 04:00 98.9 03/29/17 02:08 50 Intake and Output 03/28/17 03/28/17 03/29/17 15:00 23:00 07:00 Intake Total 400 ml 2427 ml 810 ml Output Total 2350 ml 835 ml Balance 400 ml 77 ml -25 ml Exam HEENT examination; supple neck, no JVD. No lymphadenopathy. Midline trachea. No thyromegaly. Patient has good dentition. Nipples are midsize and reactive to light. Chest examined; clear to auscultation. S1-S2 audible, no murmurs. Regular rhythm. Abdomen examination; soft, patient is currently with twins. Bowel sounds audible. Extremity examination; no peripheral edema. Pulses 2+ bilaterally. IMMIGRATION JUDGE examination; no focal deficit. Results Result Diagram: 03/28/17 1140 03/28/17 0520 Results 24 hrs Laboratory Tests Test 03/28/17 11:40 03/29/17 04:55 Hemoglobin 8.8 L Hematocrit 26.6 L Lab Scanned Report BLOOD TRANSFUSION Medications Medications Current Medications Dimethicone 1 applic 1 applic Q2H PRN TOP CHAPPED LIPS Last administered on 15:55; Admin Dose 1 APPLIC; Start 03/24/17 at 15:30 Azithromycin/ Sodium Chloride (Zithromax/NS) 250 ml @ 250 mls/hr Q24H IVPB Last administered on 03/28/17 15:38; Admin Dose 250 MLS/HR; Start 03/26/17 at 14:00; Stop 03/31/17 at 14:00 Prenat Multivit/ [place]/Iron/Folic Ac ( S) 1 tab DAILY PO Last administered on 03/29/17 08:43; Admin Dose 1 TAB; Start 03/25/17 at 16:00 Ferrous Sulfate 325 mg 325 mg DAILY PO Last administered on 03/29/17 08:44; Admin Dose 325 MG; Start 03/25/17 at 16:30 Sodium Chloride 1,000 ml @ 60 mls/hr [id number] IV Last administered on 08:08; Admin Dose 60 MLS/HR; Start 03/27/17 at 22:00 Piperacillin Sod/ Tazobactam Sod (Zosyn 3.375gm/ 100 ml (Pmx)) 100 ml @ 200 mls /hr Q8 IVPB Last administered on 03/29/17 06:00; Admin Dose 200 MLS/HR; Start 03/28/17 at 12:00 Tetrahydrozoline HCl (Geneyes Oph) 1 drop 09,13,17,21 BOTH EYES Last administered on 03/29/17 08:44; Admin Dose 1 DROP; Start 03/28/17 at 21:00 Nifedipine (Procardia) 10 mg Q6 PO Last administered on 03/29/17 06:00; Admin Dose 10 MG; Start 03/28/17 at 17:30; Stop 04/28/17 at 17:29 LUTHER MORROW 16, 2017 10:01
--- NOTE | 2017-03-29 10:17 | QN ---
Documentation Comment Pt. feeling better. Continues to have spotting. continues to need oxygen supplementation vss stable NST reactive for the twins Hg is 8.9 after the 2 units of blood transfusion. Pt. is on Zosyn CPM, the hospitalist and glass etcher consulted JULIO PEÑALOZA MD Mar 29, 2017 10:17
[2017-03-29] MEDS: AZITHROMYCIN 250 MG in SOD CHLORIDE 0.9% 250 ML IVPB SCH (13:52)
--- NOTE | 2017-03-29 18:31 | PERINOTE ---
Date/Time of Note Date/Time of Note DATE: 03/29/17 TIME: 18:03 Assessment/Recommendations Other Assessments twins Oligohydramnios History of laser ablation, possible intracranial bleeding, not performed at this facility Vaginal bleeding, uncertain cause Anemia, possibly exacerbated by chronic bleeding Reduced Pulse oxymetry, possibly related to pulmonary infiltrates and effusion Recommendations: Would continue with antibiotics, breathing treatments. Would repeat the ultrasound for evaluation of amniotic fluid and condition every 1-2 days. If the patient continues to bleed, would favor repeating transfusion to achieve a hemoglobin of 9. When possible, this patient might benefit by transfer to [facility] for the possibility of a higher level of care. OB Subjective Free Text/Dictaton Patient with twin , status post laser ablation for twin-twin transfusion syndrome. Has had chronic vaginal bleeding of uncertain etiology, admitted for suspected labor. Had shortness of breath, transferred to ICU and treated for pneumonia. CXR read as cardiomegaly, however cardiac echo reveals normal ventricular size and junction. Venous Doppler is normal. HD# 6 IUP @ 27 weeks Complaints/Overnight events Feeling better after antibiotics, breathing treatments and transfusion. Current Medications Current Medications Dimethicone 1 applic 1 applic Q2H PRN TOP CHAPPED LIPS Last administered on 15:55; Admin Dose 1 APPLIC; Start 03/24/17 at 15:30 Azithromycin/ Sodium Chloride (Zithromax/NS) 250 ml @ 250 mls/hr Q24H IVPB Last administered on 03/29/17 13:52; Admin Dose 250 MLS/HR; Start 03/26/17 at 14:00; Stop 03/31/17 at 14:00 Prenat Multivit/ Route Salesperson/Iron/Folic Ac ( S) 1 tab DAILY PO Last administered on 03/29/17 08:43; Admin Dose 1 TAB; Start 03/25/17 at 16:00 Ferrous Sulfate 325 mg 325 mg DAILY PO Last administered on 03/29/17 08:44; Admin Dose 325 MG; Start 03/25/17 at 16:30 Sodium Chloride 1,000 ml @ 60 mls/hr [id number] IV Last administered on 08:08; Admin Dose 60 MLS/HR; Start 03/27/17 at 22:00 Piperacillin Sod/ Tazobactam Sod (Zosyn 3.375gm/ 100 ml (Pmx)) 100 ml @ 200 mls /hr Q8 IVPB Last administered on 03/29/17 13:52; Admin Dose 200 MLS/HR; Start 03/28/17 at 12:00 Tetrahydrozoline HCl (Geneyes Oph) 1 drop 09,,17,21 BOTH EYES Last administered on 03/29/17 17:25; Admin Dose 1 DROP; Start 03/28/17 at 21:00 Nifedipine (Procardia) 10 mg Q6 PO Last administered on 03/29/17 12:24; Admin Dose 10 MG; Start 03/28/17 at 17:30; Stop 04/28/17 at 17:29 OB Admission Exam Physical Exam Vitals: Vital Signs Date Time Temp Pulse Resp B/P Pulse Ox O2 Delivery O2 Flow Rate FiO2 03/29/17 17:00 100 17 115/100 98 Venturi Mask 15.0 03/29/17 16:00 98.4 03/29/17 14:45 50 Heart: Rhythm Normal Lungs: Clear Abdomen: WNL Accelerations: Accelerations Present (AGA) Last 72 hours Lab Results CBC & BMP 03/27/17 17:58 03/27/17 22:05 03/28/17 05:20 03/28/17 11:40 Liver Function Test 03/28/17 05:20 Alanine Aminotransferase (ALT/SGPT) 102 H Albumin 3.8 Alkaline Phosphatase 192 H Aspartate Amino Transf (AST/SGOT) 106 H Direct Bilirubin 0.00 Total Protein 6.4 Hemoglobin A1C Test 03/28/17 05:20 Hemoglobin A1c 5.3 Magnesium Level Test 03/27/17 13:33 03/29/17 09:56 Magnesium Level 5.7 *H 2.7 ElianeH DARA HARRELL MD Mar 29, 2017 18:13
[2017-03-30] VITALS (20 sets, daily range): BP systolic 111–140; BP diastolic 63–111; PULSE 79–109; RESP 18–31
[2017-03-30] MEDS: NIFEdipine 10 MG CAP PO SCH ×4 (00:04→18:53)
[2017-03-30] MEDS: LEVALBUTEROL (NEB) 1.25 MG/0.5 ML AMP HHN SCH ×4 (01:58→20:00)
[2017-03-30] MEDS: IPRATROPIUM (NEB) 0.5 MG/2.5 ML AMP HHN SCH ×4 (01:58→20:00)
[2017-03-30] MEDS ORDERED: ACETAMINOPHEN 325 MG TAB PO ONE (03:00)
[2017-03-30 05:03] LABS: ADD SCAN DIFF NO
[2017-03-30 05:14] LABS: BASOPHILS % 0.1 % (0.0-2.0); EOSINOPHILS # 0.1 10^3/ul (0.0-0.5); EOSINOPHILS % 1.2 % (0.0-7.0); HEMATOCRIT 26.4 % (37.0-47.0); HEMOGLOBIN 8.7 g/dl (12.0-16.0); LYMPHOCYTES # 0.8 10^3/ul (0.8-2.9); LYMPHOCYTES % 7.6 % (15.0-51.0); MEAN CORPUSCULAR HEMOGLOBIN 28.3 pg (29.0-33.0); MEAN PLATELET VOLUME 10.4 fl (7.4-10.4); MONOCYTE # 0.8 10^3/ul (0.3-0.9); MONOCYTES % 7.2 % (0.0-11.0); NEUTROPHIL # 8.9 10^3/ul (1.6-7.5); NEUTROPHILS % 81.3 % (39.0-77.0); NUCLEATED RED BLOOD CELLS # 0.2 10^3/ul (0.0-0.0); NUCLEATED RED BLOOD CELLS% 1.4 /100WBC (0.0-0.0); PLATELET COUNT 149 10^3/UL (140-415); RED BLOOD COUNT 3.07 10^6/ul (4.20-5.40); RED CELL DISTRIBUTION WIDTH 15.7 % (11.5-14.5); WHITE BLOOD COUNT 10.9 10^3/ul (4.8-10.8)
[2017-03-30 05:31] LABS: CALCIUM 8.3 mg/dl (8.4-10.2); CREATININE 0.6 mg/dl (0.44-1.00); POTASSIUM 3.9 mmol/L (3.5-5.1)
[2017-03-30] MEDS: PIPER-TAZO 3.375 GM IV (PMX) 100 ML IVPB SCH ×3 (06:11→22:08)
--- NOTE | 2017-03-30 06:13 | RADRPT ---
PROCEDURE: Biophysical profile. CLINICAL INDICATION: Pelvic pain. TECHNIQUE: Multiple sonographic images of the pelvis were obtained with transabdominal technique. COMPARISON: 03/27/2017. FINDINGS: There is twin living intrauterine gestation. There is decreased amniotic fluid volume with the maxi mum vertical pocket measuring 1.5 cm. Fetus A: Fetus A is in a breech position. The placenta is anterior in location, grade 2. hea rt tones of 163 beats per minute are identified. breathing movements = 2 Gross body movements = 2 tone = 2 Qualitative AFV = 2 Fetus B: Fetus B is in a breech position. The placenta is anterior in location, grade 2. hea rt tones of 154 beats per minute are identified. breathing movements = 2 Gross body movements = 2 tone = 2 Qualitative AFV = 2 IMPRESSION: Twin living intrauterine gestation. Biophysical profiles are 6 out of 8 for both fetuses. Oligohydramnios with the maximum vertical pocket measuring 1.5 cm. .Oleg Booth MD, MD Date Time Electronically viewed and signed by .Oleg Booth MD, on 03/30/2017 06:13 .T/
--- NOTE | 2017-03-30 07:58 | CONS ---
Date/Time of Note Date/Time of Note DATE: 03/30/17 TIME: 07:56 Assessment/Plan Assessment/Plan Additional Assessment/Plan Assessment recommendations; 1. Patient admitted with severe bilateral pneumonia with significant clinical improvement. 2. Patient currently with twins, complicated by cord ablation and to transfusion. Continue current treatment. Obtain follow-up chest x-ray in 24 hours. Consultation Date/Type/Reason Admit Date/Time Mar 24, 2017 at 16:08 Initial Consult Date 03/28/17 Type of Consultation: Pulmonary/critical care 24 HR Interval Summary Free Text/Dictation Patient condition is stable. Complains of very mild shortness of breath. Denies any fever chills. Any chest pain. Coughing or wheezing. Denies any further nausea vomiting. Nicki; young woman, awake alert currently in no distress. Exam/Review of Systems Vital Signs Vitals Vital Signs Date Time Temp Pulse Resp B/P Pulse Ox O2 Delivery O2 Flow Rate FiO2 03/30/17 07:47 106 23 91 21 03/30/17 06:00 133/80 Nasal Cannula 6.0 03/30/17 04:00 98.9 Intake and Output 03/29/17 03/29/17 03/30/17 15:00 23:00 07:00 Intake Total 1200 ml 1080 ml 720 ml Output Total 170 ml 1200 ml 1200 ml Balance 1030 ml -120 ml -480 ml Exam HEENT examination; supple neck, no JVD. No lymphadenopathy. Midline trachea. No thyromegaly. Dentition is good. Pupils are equal and reactive to light bilaterally. Chest examination; clear to auscultation. S1-S2 audible, no murmurs. Regular rhythm. Abdomen examination; soft, and is . Extremity examination; no peripheral edema. Pulses 2+ bilaterally. SIGNALS COLLECTOR/ANALYST examination; no focal deficit. Results Result Diagram: 03/30/17 0441 03/30/17 0441 Results 24 hrs Laboratory Tests Test 03/29/17 09:56 03/30/17 04:41 Magnesium Level 2.7 #H White Blood Count 10.9 #H Red Blood Count 3.07 L Hemoglobin 8.7 L Hematocrit 26.4 L Mean Corpuscular Volume 86.0 Mean Corpuscular Hemoglobin 28.3 L Mean Corpuscular Hemoglobin Concent 33.0 Red Cell Distribution Width 15.7 H Platelet Count 149 Mean Platelet Volume 10.4 Neutrophils % 81.3 H Lymphocytes % 7.6 L Monocytes % 7.2 Eosinophils % 1.2 Basophils % 0.1 Nucleated Red Blood Cells % 1.4 H Neutrophils # 8.9 H Lymphocytes # 0.8 Monocytes # 0.8 Eosinophils # 0.1 Basophils # 0.0 Nucleated Red Blood Cells # 0.2 H Sodium Level 137 Potassium Level 3.9 Chloride Level 112 H Carbon Dioxide Level 18 L Anion Gap 11 Blood Urea Nitrogen 4 L Creatinine 0.60 Glucose Level 85 Calcium Level 8.3 L Medications Medications Current Medications Dimethicone 1 applic 1 applic Q2H PRN TOP CHAPPED LIPS Last administered on 15:55; Admin Dose 1 APPLIC; Start 03/24/17 at 15:30 Azithromycin/ Sodium Chloride (Zithromax/NS) 250 ml @ 250 mls/hr Q24H IVPB Last administered on 03/29/17 13:52; Admin Dose 250 MLS/HR; Start 03/26/17 at 14:00; Stop 03/31/17 at 14:00 Prenat Multivit/ [place]/Iron/Folic Ac ( S) 1 tab DAILY PO Last administered on 03/29/17 08:43; Admin Dose 1 TAB; Start 03/25/17 at 16:00 Ferrous Sulfate 325 mg 325 mg DAILY PO Last administered on 03/29/17 08:44; Admin Dose 325 MG; Start 03/25/17 at 16:30 Sodium Chloride 1,000 ml @ 60 mls/hr [id number] IV Last administered on 08:08; Admin Dose 60 MLS/HR; Start 03/27/17 at 22:00 Piperacillin Sod/ Tazobactam Sod (Zosyn 3.375gm/ 100 ml (Pmx)) 100 ml @ 200 mls /hr Q8 IVPB Last administered on 03/30/17 06:11; Admin Dose 200 MLS/HR; Start 03/28/17 at 12:00 Tetrahydrozoline HCl (Geneyes Oph) 1 drop 09,13,17,21 BOTH EYES Last administered on 03/29/17 21:05; Admin Dose 1 DROP; Start 03/28/17 at 21:00 Nifedipine (Procardia) 10 mg Q6 PO Last administered on 6/17/17at 06:11; Admin Dose 10 MG; Start 03/28/17 at 17:30; Stop 04/28/17 at 17:29 LUTHER MORROW Mar 30, 2017 07:58
[2017-03-30 09:17] LABS: HEMOGLOBIN A 97.5 % (>96.0); HEMOGLOBIN A2 (QUANT) 2.5 % (1.8-3.5); HEMOGLOBIN F <1.0 % (<2.0)
[2017-03-30] MEDS: FERROUS SULFATE (EC) 325 MG TAB PO SCH (09:25)
[2017-03-30] MEDS: MULTIVIT/MIN/FOLATE/IRON/PREN TAB PO SCH (09:25)
[2017-03-30] MEDS: TETRAHYDROZOLINE 0.05% 15 ML OPH BOTH EYES SCH ×4 (09:26→22:08)
[2017-03-30] MEDS: SOD CHLORIDE 0.9% 1,000 ML IV SCH (16:40)
[2017-03-30] MEDS: AZITHROMYCIN 250 MG in SOD CHLORIDE 0.9% 250 ML IVPB SCH (16:56)
[2017-03-30] MEDS ORDERED: ZOLPIDEM 5 MG TAB PO PRN (19:30)
--- NOTE | 2017-03-30 20:45 | PN ---
Date/Time of Note Date/Time of Note DATE: 03/30/17 TIME: 18:21 Assessment/Plan VTE Prophylaxis VTE Prophylaxis Intervention: SCD's Lines/Catheters IV [facility]ter [facility] (from [facility]): Peripheral IV Urinary Cath still in place: No Assessment/Plan Chief Complaint/Hosp Course 31-year-old female with the following who originally pesented with contractions and is now managed for : 1. Acute shortness of breath 2/2 Pneumonia and vasc congestion: * Much improved / patient only on NC, but she removes this at will * Echo shows elevated peak PA pressure of 50 2. 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 Hypochromic anemia with hemoglobin of 7.5: s/p transfusion of 2 units PRBCs yesterday 4. Hypocalcemia: replenished 5. Bilateral Pneumonia 6. G Vaginalis UTI 7. Transaminitis 8. Sepsis 2/2 Pneumonia: improved 9. Occasional vaginal bleeding per lab rep 10. contraction Recommendations: * Transfer to tele * Continue gentle diuresis * Change bronchodilator therapy to while awake * Continue Zosyn / bronchodilator therapy * Patient on Nifedipine for contraction per OB * Tachycardia likely 2/2 B agonist tx and hyperdynamic state * Further interventions per clinical course * monitoring per OB/ supportive care . Problems: Subjective 24 Hr Interval Summary Free Text/Dictation Patient seen and examined. states she didn't get much sleep since admission and also requesting for something to eat Exam/Review of Systems Vital Signs Vitals Vital Signs Date Time Temp Pulse Resp B/P Pulse Ox O2 Delivery O2 Flow Rate FiO2 03/30/17 16:14 109 03/30/17 14:33 22 95 Nasal Cannula 3.0 03/30/17 12:39 98.0 118/66 03/30/17 07:47 21 Intake and Output 03/29/17 03/29/17 03/30/17 15:00 23:00 07:00 Intake Total 1200 ml 1080 ml 720 ml Output Total 170 ml 1200 ml 1200 ml Balance 1030 ml -120 ml -480 ml Exam Constitutional: alert, oriented, No distress Head: atraumatic, normocephalic Eyes: PERRL ENMT: mucosa pink and moist Neck: supple Respiratory: crackles/rales (LLB), diminished breath sounds Cardiovascular: other (tachycardic without murmurs) Gastrointestinal: other (gravid / non tender) Extremities: No edema Neurological: nl mental status, nl speech Results Result Diagram: 03/30/1744003/30/17440 Results 24 hrs Laboratory Tests Test 03/30/17 04:41 White Blood Count 10.9 #H Red Blood Count 3.07 L Hemoglobin 8.7 L Hematocrit 26.4 L Mean Corpuscular Volume 86.0 Mean Corpuscular Hemoglobin 28.3 L Mean Corpuscular Hemoglobin Concent 33.0 Red Cell Distribution Width 15.7 H Platelet Count 149 Mean Platelet Volume 10.4 Neutrophils % 81.3 H Lymphocytes % 7.6 L Monocytes % 7.2 Eosinophils % 1.2 Basophils % 0.1 Nucleated Red Blood Cells % 1.4 H Neutrophils # 8.9 H Lymphocytes # 0.8 Monocytes # 0.8 Eosinophils # 0.1 Basophils # 0.0 Nucleated Red Blood Cells # 0.2 H Sodium Level 137 Potassium Level 3.9 Chloride Level 112 H Carbon Dioxide Level 18 L Anion Gap 11 Blood Urea Nitrogen 4 L Creatinine 0.60 Glucose Level 85 Calcium Level 8.3 L Medications Medications Current Medications Dimethicone 1 applic 1 applic Q2H PRN TOP CHAPPED LIPS Last administered on 15:55; Admin Dose 1 APPLIC; Start 03/24/17 at 15:30 Azithromycin/ Sodium Chloride (Zithromax/NS) 250 ml @ 250 mls/hr Q24H IVPB Last administered on 03/30/17 16:56; Admin Dose 250 MLS/HR; Start 03/26/17 at 14:00; Stop 03/31/17 at 14:00 Prenat Multivit/ [place]/Iron/Folic Ac ( S) 1 tab DAILY PO Last administered on 03/30/17 09:25; Admin Dose 1 TAB; Start 03/25/17 at 16:00 Ferrous Sulfate 325 mg 325 mg DAILY PO Last administered on 03/30/17 09:25; Admin Dose 325 MG; Start 03/25/17 at 16:30 Sodium Chloride 1,000 ml @ 60 mls/hr [id number] IV Last administered on 08:08; Admin Dose 60 MLS/HR; Start 03/27/17 at 22:00 Piperacillin Sod/ Tazobactam Sod (Zosyn 3.375gm/ 100 ml (Pmx)) 100 ml @ 200 mls /hr Q8 IVPB Last administered on 03/30/17 15:00; Admin Dose 200 MLS/HR; Start 03/28/17 at 12:00 Tetrahydrozoline HCl (Geneyes Oph) 1 drop 09,13,17,21 BOTH EYES Last administered on 03/30/17 13:00; Admin Dose 1 DROP; Start 03/28/17 at 21:00 Nifedipine (Procardia) 10 mg Q6 PO Last administered on 03/30/17 12:59; Admin Dose 10 MG; Start 03/28/17 at 17:30; Stop 04/28/17 at 17:29 Procedures Procedures PROCEDURE: XR Chest. CLINICAL INDICATION: 31-year-old 28 weeks female and respiratory distress. TECHNIQUE: Single frontal view of the chest was obtained. COMPARISON: Chest x-ray 03/27/2017 02:34 p.m.. FINDINGS: The soft tissues are normal . An oxygen cannula is draped across the right shoulder.. The bony elements are normal. The heart is enlarged. The cardiomediastinal silhouette and hilar structures are normal. The pulmonary vasculature is increased. There is a left-sided aorta. There are bilateral perihilar and basilar infiltrates which have worsened slightly in the lower lung casiano when compared to the prior study. bilateral pleural effusions are present. IMPRESSION: 1. Congestive heart failure with worsening perihilar and basilar pulmonary edema with bilateral pleural effusions. RPTAT:AAJJ Physician Lloyd Date Time Electronically viewed and signed by Jono Roldan Physician on 03/28/2017 11:31 JM/ CC: PRAKASH REYES BOLATITO M. Mar 30, 2017 18:26
--- NOTE | 2017-03-30 20:46 | QN ---
Documentation Comment Pt. feeling better. Presently on nasal canuli for O2 VSS heart tracing is category one. will transfer to step down. Hg 8.6 Zosyn will continue JULIO PEÑALOZA MD Mar 30, 2017 19:20
--- NOTE | 2017-03-30 20:47 | CONS ---
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 Since that time , both fetuses have been found to have poor growth, and one has possible intracranial bleeding. A MRI was performed at [facility], but results are not available to us. Neonatologists at [facility] have expressed the belief that these newborns might benefit from a higher level of care, such as at [facility]. More recently, patient has had chronic vaginal bleeding of unknown etiology, complicated with anemia. She was admitted for treatment for labor and was given steroids and magnesium sulfate. This combination, in twin pregnancies, is associated with a significant incidence of pulmonary edema. She developed shortness of breath and pulmonary infiltrates, read as pulmonary edema and possible pneumonia, and her condition has improved with treatment. Issues: Slow growth in the twins suggests that there may be insufficient placental transfer of oxygen and nutrients. I would expect that these twins would require deliver between 32 and 36 weeks GA Chronic bleeding may be a complication of the original laser treatment, which was performed via an intrauterine scope. Patient also has elevated LFTs, these are not explained, but these could be due to medication. The patient's blood pressures are normal, suggesting that this is not preeclampsia, and the bilirubin is normal, making acute fatty liver of less likely. Problems: Additional Assessment/Plan Will ask for UA Doppler studies with daily assessment by ultrasound Will request repeat LFTs in AM Would consider blood transfusion to Hgb of 9 as the patient continues to slowly bleed and will had a surgical delivery with EBL likely of >1000cc at some point in the near future. Would continue pulmonary care as per medical clerical assistant. Consultation Date/Type/Reason Admit Date/Time Mar 24, 2017 at 16:08 Initial Consult Date 03/28/17 Type of Consultation: Perinatology Exam/Review of Systems Vital Signs Vitals Vital Signs Date Time Temp Pulse Resp B/P Pulse Ox O2 Delivery O2 Flow Rate FiO2 03/30/17 16:29 97.6 73 18 117/70 98 03/30/17 14:33 Nasal Cannula 3.0 03/30/17 07:47 21 Intake and Output 03/29/17 03/29/17 03/30/17 15:00 23:00 07:00 Intake Total 1200 ml 1080 ml 720 ml Output Total 170 ml 1200 ml 1200 ml Balance 1030 ml -120 ml -480 ml Results Result Diagram: 03/30/17 0441 03/30/17 0441 Results 24 hrs Laboratory Tests Test 03/30/17 04:41 White Blood Count 10.9 #H Red Blood Count 3.07 L Hemoglobin 8.7 L Hematocrit 26.4 L Mean Corpuscular Volume 86.0 Mean Corpuscular Hemoglobin 28.3 L Mean Corpuscular Hemoglobin Concent 33.0 Red Cell Distribution Width 15.7 H Platelet Count 149 Mean Platelet Volume 10.4 Neutrophils % 81.3 H Lymphocytes % 7.6 L Monocytes % 7.2 Eosinophils % 1.2 Basophils % 0.1 Nucleated Red Blood Cells % 1.4 H Neutrophils # 8.9 H Lymphocytes # 0.8 Monocytes # 0.8 Eosinophils # 0.1 Basophils # 0.0 Nucleated Red Blood Cells # 0.2 H Sodium Level 137 Potassium Level 3.9 Chloride Level 112 H Carbon Dioxide Level 18 L Anion Gap 11 Blood Urea Nitrogen 4 L Creatinine 0.60 Glucose Level 85 Calcium Level 8.3 L Medications Medications Current Medications Dimethicone 1 applic 1 applic Q2H PRN TOP CHAPPED LIPS Last administered on 15:55; Admin Dose 1 APPLIC; Start 03/24/17 at 15:30 Azithromycin/ Sodium Chloride (Zithromax/NS) 250 ml @ 250 mls/hr Q24H IVPB Last administered on 03/30/17 16:56; Admin Dose 250 MLS/HR; Start 03/26/17 at 14:00; Stop 03/31/17 at 14:00 Prenat Multivit/ Budget And Policy Analyst/Iron/Folic Ac ( S) 1 tab DAILY PO Last administered on 03/30/17 09:25; Admin Dose 1 TAB; Start 03/25/17 at 16:00 Ferrous Sulfate 325 mg 325 mg DAILY PO Last administered on 03/30/17 09:25; Admin Dose 325 MG; Start 03/25/17 at 16:30 Sodium Chloride 1,000 ml @ 60 mls/hr [id number] IV Last administered on 08:08; Admin Dose 60 MLS/HR; Start 03/27/17 at 22:00 Piperacillin Sod/ Tazobactam Sod (Zosyn 3.375gm/ 100 ml (Pmx)) 100 ml @ 200 mls /hr Q8 IVPB Last administered on 03/30/17 15:00; Admin Dose 200 MLS/HR; Start 03/28/17 at 12:00 Tetrahydrozoline HCl (Geneyes Oph) 1 drop 09,13,17,21 BOTH EYES Last administered on 03/30/17 18:00; Admin Dose 1 DROP; Start 03/28/17 at 21:00 Nifedipine (Procardia) 10 mg Q6 PO Last administered on 03/30/17 18:53; Admin Dose 10 MG; Start 03/28/17 at 17:30; Stop 04/28/17 at 17:29 Zolpidem Tartrate (Ambien) 5 mg HS PRN PO INSOMNIA; Start 03/30/17 at 19:30 Copies To: CC: JULIO PEÑALOZA MD, MARIE H MD Mar 30, 2017 19:34
[2017-03-31] VITALS (12 sets, daily range): BP systolic 112–125; BP diastolic 56–73; PULSE 81–116; RESP 18–19
[2017-03-31] MEDS: NIFEdipine 10 MG CAP PO SCH ×4 (00:09→18:07)
--- NOTE | 2017-03-31 00:23 | RADRPT ---
PROCEDURE: Biophysical profile. CLINICAL INDICATION: Pelvic pain. TECHNIQUE: Multiple sonographic images of the pelvis were obtained with transabdominal technique. COMPARISON: 03/30/2017. FINDINGS: There is twin living intrauterine gestation. There is decreased amniotic fluid volume with the maxim um vertical pocket measuring 1.5 cm. Fetus A: Fetus A is in a breech position. The placenta is anterior in location, grade 2. heart tones of 157 beats per minute are identified. breathing movements = 2 Gross body movements = 2 tone = 2 Qualitative AFV = 0 Fetus B: Fetus B is in a cephalic position. The placenta is anterior in location, grade 2. hea rt tones of 154 beats per minute are identified. breathing movements = 2 Gross body movements = 2 tone = 2 Qualitative AFV = 0 IMPRESSION: Twin living intrauterine gestation. Biophysical profiles are 6 out of 8 for both fetuses. Oligohydramnios with the maximum vertical pocket measuring 1.5 cm, unchanged. .Oleg Booth MD, MD Date Time Electronically viewed and signed by .Oleg Booth MD, on 03/31/2017 00:23 .T/
[2017-03-31] MEDS: SOD CHLORIDE 0.9% 1,000 ML IV SCH ×3 (02:00→23:57)
[2017-03-31] MEDS: PIPER-TAZO 3.375 GM IV (PMX) 100 ML IVPB SCH ×3 (06:19→22:36)
[2017-03-31] MEDS: LEVALBUTEROL (NEB) 1.25 MG/0.5 ML AMP HHN SCH ×3 (07:48→19:29)
[2017-03-31] MEDS: IPRATROPIUM (NEB) 0.5 MG/2.5 ML AMP HHN SCH ×3 (07:49→19:29)
[2017-03-31 08:36] LABS: ALBUMIN 3.2 g/dl (3.3-4.9); ALBUMIN/GLOBULIN RATIO 1.14; BILIRUBIN,INDIRECT 0.1 mg/dl (0-1.1); BILIRUBIN,TOTAL 0.1 mg/dl (0.2-1.3); CREATININE 0.66 mg/dl (0.44-1.00); POTASSIUM 4.2 mmol/L (3.5-5.1)
[2017-03-31 08:37] LABS: ALBUMIN 3.1 g/dl (3.3-4.9); BILIRUBIN,INDIRECT 0.1 mg/dl (0-1.1); BILIRUBIN,TOTAL 0.1 mg/dl (0.2-1.3); MAGNESIUM 1.8 mg/dl (1.7-2.5); TOTAL PROTEIN 5.5 g/dl (6.1-8.1)
[2017-03-31 08:40] LABS: ADD SCAN DIFF NO
[2017-03-31 08:52] LABS: BASOPHILS % 0.4 % (0.0-2.0); EOSINOPHILS # 0.3 10^3/ul (0.0-0.5); EOSINOPHILS % 2.6 % (0.0-7.0); HEMATOCRIT 29.6 % (37.0-47.0); HEMOGLOBIN 9.6 g/dl (12.0-16.0); LYMPHOCYTES # 0.9 10^3/ul (0.8-2.9); MEAN CORPUSCULAR HEMOGLOBIN 27.8 pg (29.0-33.0); MEAN CORPUSCULAR HGB CONC 32.4 g/dl (32.0-37.0); MEAN CORPUSCULAR VOLUME 85.8 fl (82.0-101.0); MEAN PLATELET VOLUME 10.6 fl (7.4-10.4); MONOCYTE # 0.8 10^3/ul (0.3-0.9); MONOCYTES % 7.3 % (0.0-11.0); NEUTROPHIL # 8.7 10^3/ul (1.6-7.5); NEUTROPHILS % 79.6 % (39.0-77.0); NUCLEATED RED BLOOD CELLS # 0.1 10^3/ul (0.0-0.0); NUCLEATED RED BLOOD CELLS% 1.1 /100WBC (0.0-0.0); PLATELET COUNT 176 10^3/UL (140-415); RED BLOOD COUNT 3.45 10^6/ul (4.20-5.40); RED CELL DISTRIBUTION WIDTH 15.6 % (11.5-14.5); WHITE BLOOD COUNT 10.9 10^3/ul (4.8-10.8)
[2017-03-31] MEDS: FERROUS SULFATE (EC) 325 MG TAB PO SCH (09:23)
[2017-03-31] MEDS: TETRAHYDROZOLINE 0.05% 15 ML OPH BOTH EYES SCH ×4 (09:23→22:37)
[2017-03-31] MEDS: MULTIVIT/MIN/FOLATE/IRON/PREN TAB PO SCH (09:23)
--- NOTE | 2017-03-31 13:05 | PN ---
Date/Time of Note Date/Time of Note DATE: 03/31/17 TIME: 12:52 Assessment/Plan VTE Prophylaxis VTE Prophylaxis Intervention: SCD's Lines/Catheters IV C[facility]ter Type (from [facility]): Peripheral IV Urinary Cath still in place: No Assessment/Plan Assessment/Plan 31-year-old female with the following who originally pesented with contractions and is now managed for : 1. Acute shortness of breath 2/2 Pneumonia and vasc congestion: * Much improved / patient only on NC, but she removes this at will * Echo shows elevated peak PA pressure of 50 2. 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 Hypochromic anemia s/p transfusion of 2 units so far 4. Sepsis 2/2 Pneumonia: improved 5. Transaminitis 6. G Vaginalis UTI 7. Occasional vaginal bleeding per athletic shoe designer / contractions Recommendations: * Continue abx therapy for a total of 10 days to 2 weeks / continue bronchodilator therapy / wean down o2 * Patient on Nifedipine for contraction per OB * Tachycardia likely 2/2 B agonist tx and hyperdynamic state * Further interventions per clinical course * monitoring per OB/ supportive care Subjective 24 Hr Interval Summary Free Text/Dictation patient feels better, wants to take a shower Exam/Review of Systems Vital Signs Vitals Vital Signs Date Time Temp Pulse Resp B/P Pulse Ox O2 Delivery O2 Flow Rate FiO2 03/31/17 12:31 98.0 84 18 117/59 99 03/31/17 07:54 Nasal Cannula 2.0 03/30/17 07:47 21 Intake and Output 03/30/17 03/30/17 03/31/17 15:00 23:00 07:00 Intake Total 1250 ml 800 ml 1500 ml Output Total 900 ml 1050 ml 1200 ml Balance 350 ml -250 ml 300 ml Exam Constitutional: alert, oriented, No distress Head: atraumatic, normocephalic Eyes: PERRL ENMT: mucosa pink and moist Neck: supple Respiratory: less crackles/rales (LLB), diminished breath sounds Cardiovascular: S1S2 no murmur Gastrointestinal: other (gravid / non tender) Extremities: No edema Neurological: nl mental status, nl speech Results Result Diagram: 03/31/1772403/31/17 0725 Results 24 hrs Laboratory Tests Test 03/31/17 07:25 White Blood Count 10.9 H Red Blood Count 3.45 L Hemoglobin 9.6 L Hematocrit 29.6 L Mean Corpuscular Volume 85.8 Mean Corpuscular Hemoglobin 27.8 L Mean Corpuscular Hemoglobin Concent 32.4 Red Cell Distribution Width 15.6 H Platelet Count 176 Mean Platelet Volume 10.6 H Neutrophils % 79.6 H Lymphocytes % 8.0 L Monocytes % 7.3 Eosinophils % 2.6 Basophils % 0.4 Nucleated Red Blood Cells % 1.1 H Neutrophils # 8.7 H Lymphocytes # 0.9 Monocytes # 0.8 Eosinophils # 0.3 Basophils # 0.0 Nucleated Red Blood Cells # 0.1 H Sodium Level 134 L Potassium Level 4.2 Chloride Level 110 Carbon Dioxide Level 17 L Anion Gap 11 Blood Urea Nitrogen 4 L Creatinine 0.66 Glucose Level 91 Calcium Level 9.0 Magnesium Level 1.8 Total Bilirubin 0.1 L Direct Bilirubin 0.00 Indirect Bilirubin 0.1 Aspartate Amino Transf (AST/SGOT) 25 Alanine Aminotransferase (ALT/SGPT) 47 Alkaline Phosphatase 165 H Total Protein 6.0 L Albumin 3.2 L Globulin 2.80 Albumin/Globulin Ratio 1.14 Medications Medications Current Medications Dimethicone 1 applic 1 applic Q2H PRN TOP CHAPPED LIPS Last administered on 15:55; Admin Dose 1 APPLIC; Start 03/24/17 at 15:30 Azithromycin/ Sodium Chloride (Zithromax/NS) 250 ml @ 250 mls/hr Q24H IVPB Last administered on 03/30/17 16:56; Admin Dose 250 MLS/HR; Start 03/26/17 at 14:00; Stop 03/31/17 at 14:00 Prenat Multivit/ Earth Science Professor/Iron/Folic Ac ( S) 1 tab DAILY PO Last administered on 03/31/17 09:23; Admin Dose 1 TAB; Start 03/25/17 at 16:00 Ferrous Sulfate 325 mg 325 mg DAILY PO Last administered on 03/31/17 09:23; Admin Dose 325 MG; Start 03/25/17 at 16:30 Sodium Chloride 1,000 ml @ 60 mls/hr [id number] IV Last administered on 02:00; Admin Dose 60 MLS/HR; Start 03/27/17 at 22:00 Piperacillin Sod/ Tazobactam Sod (Zosyn 3.375gm/ 100 ml (Pmx)) 100 ml @ 200 mls /hr Q8 IVPB Last administered on 03/31/17 06:19; Admin Dose 200 MLS/HR; Start 03/28/17 at 12:00 Tetrahydrozoline HCl (Geneyes Oph) 1 drop 09,13,17,21 BOTH EYES Last administered on 03/31/17 09:23; Admin Dose 1 DROP; Start 03/28/17 at 21:00 Nifedipine (Procardia) 10 mg Q6 PO Last administered on 03/31/17 06:19; Admin Dose 10 MG; Start 03/28/17 at 17:30; Stop 04/28/17 at 17:29 Zolpidem Tartrate (Ambien) 5 mg HS PRN PO INSOMNIA; Start 03/30/17 at 19:30 PRAKASH REYES Mar 31, 2017 13:02
--- NOTE | 2017-03-31 13:38 | CONS ---
Date/Time of Note Date/Time of Note DATE: 03/31/17 TIME: 13:36 Assessment/Plan Assessment/Plan Additional Assessment/Plan Assessment recommendations; 1. Patient admitted for severe bilateral pneumonia with marked clinical improvement. 2. History of hypertension. 3. Patient currently with twins, complicated by requirement for to transfusion as well as cord ablation. Continue current treatment. Patient responding very well to current treatment regimen. Anticipate another 24 hours of IV antibiotics. Consultation Date/Type/Reason Admit Date/Time Mar 24, 2017 at 16:08 Initial Consult Date 03/28/17 Type of Consultation: pulmonary 24 HR Interval Summary Free Text/Dictation Patient condition is markedly improved. She has been transferred out of ICU to telemetry unit. Denies any shortness of breath, coughing, wheezing chest pain. Nicki; young woman, awake alert currently in no distress. Exam/Review of Systems Vital Signs Vitals Vital Signs Date Time Temp Pulse Resp B/P Pulse Ox O2 Delivery O2 Flow Rate FiO2 03/31/17 12:31 98.0 84 18 117/59 99 03/31/17 07:54 Nasal Cannula 2.0 03/30/17 07:47 21 Intake and Output 03/30/17 03/30/17 03/31/17 15:00 23:00 07:00 Intake Total 1250 ml 800 ml 1500 ml Output Total 900 ml 1050 ml 1200 ml Balance 350 ml -250 ml 300 ml Exam HEENT examination; supple neck, no JVD. No lymphadenopathy. Midline trachea. No thyromegaly. Pharynx is clear. Patient has good dentition. Chest examination; clear to ulceration. S1-S2 audible, no murmurs. Regular rhythm. Abdomen examination; soft, patient is gravid. Bowel sounds audible. Extremity examination; no peripheral edema. Pulses 2+ bilaterally. SQL ARCHITECT examination; no focal deficit. Results Result Diagram: 03/31/17 0725 03/31/17 0725 Results 24 hrs Laboratory Tests Test 03/31/17 07:25 White Blood Count 10.9 H Red Blood Count 3.45 L Hemoglobin 9.6 L Hematocrit 29.6 L Mean Corpuscular Volume 85.8 Mean Corpuscular Hemoglobin 27.8 L Mean Corpuscular Hemoglobin Concent 32.4 Red Cell Distribution Width 15.6 H Platelet Count 176 Mean Platelet Volume 10.6 H Neutrophils % 79.6 H Lymphocytes % 8.0 L Monocytes % 7.3 Eosinophils % 2.6 Basophils % 0.4 Nucleated Red Blood Cells % 1.1 H Neutrophils # 8.7 H Lymphocytes # 0.9 Monocytes # 0.8 Eosinophils # 0.3 Basophils # 0.0 Nucleated Red Blood Cells # 0.1 H Sodium Level 134 L Potassium Level 4.2 Chloride Level 110 Carbon Dioxide Level 17 L Anion Gap 11 Blood Urea Nitrogen 4 L Creatinine 0.66 Glucose Level 91 Calcium Level 9.0 Magnesium Level 1.8 Total Bilirubin 0.1 L Direct Bilirubin 0.00 Indirect Bilirubin 0.1 Aspartate Amino Transf (AST/SGOT) 25 Alanine Aminotransferase (ALT/SGPT) 47 Alkaline Phosphatase 165 H Total Protein 6.0 L Albumin 3.2 L Globulin 2.80 Albumin/Globulin Ratio 1.14 Medications Medications Current Medications Dimethicone 1 applic 1 applic Q2H PRN TOP CHAPPED LIPS Last administered on 15:55; Admin Dose 1 APPLIC; Start 03/24/17 at 15:30 Azithromycin/ Sodium Chloride (Zithromax/NS) 250 ml @ 250 mls/hr Q24H IVPB Last administered on 03/30/17 16:56; Admin Dose 250 MLS/HR; Start 03/26/17 at 14:00; Stop 03/31/17 at 14:00 Prenat Multivit/ [place]/Iron/Folic Ac ( S) 1 tab DAILY PO Last administered on 03/31/17 09:23; Admin Dose 1 TAB; Start 03/25/17 at 16:00 Ferrous Sulfate 325 mg 325 mg DAILY PO Last administered on 03/31/17 09:23; Admin Dose 325 MG; Start 03/25/17 at 16:30 Sodium Chloride 1,000 ml @ 60 mls/hr [id number] IV Last administered on 02:00; Admin Dose 60 MLS/HR; Start 03/27/17 at 22:00 Piperacillin Sod/ Tazobactam Sod (Zosyn 3.375gm/ 100 ml (Pmx)) 100 ml @ 200 mls /hr Q8 IVPB Last administered on 03/31/17 13:23; Admin Dose 200 MLS/HR; Start 03/28/17 at 12:00 Tetrahydrozoline HCl (GeneAll Protector Agencys Oph) 1 drop 09,13,17,21 BOTH EYES Last administered on 03/31/17 13:23; Admin Dose 1 DROP; Start 03/28/17 at 21:00 Nifedipine (Procardia) 10 mg Q6 PO Last administered on 03/31/17 13:24; Admin Dose 10 MG; Start 03/28/17 at 17:30; Stop 04/28/17 at 17:29 Zolpidem Tartrate (Ambien) 5 mg HS PRN PO INSOMNIA; Start 03/30/17 at 19:30 LUTHER MORROW Mar 31, 2017 13:38
--- NOTE | 2017-03-31 15:23 | RADRPT ---
PROCEDURE: Umbilical artery Doppler. CLINICAL INDICATION: Small for gestational age. Twin gestation. TECHNIQUE: Multiple sonographic images of the gravid uterus were obtained utilizing chavez-scale jonathan ging. Sagittal and transverse images were obtained. Umbilical artery Doppler was performed. The i mages were reviewed on a PACS workstation. COMPARISON: No prior studies are available for comparison. FINDINGS: There is a live twin intrauterine . Twin A: heart rate is 166 beats per minute. Position is cephalic. Placenta is anterior grade II. The re is oligohydramnios. The umbilical artery systolic to diastolic ratio is 2.7 proximally, 2.1 in the midportion, and 2.6 d istally. Twin B: heart rate is 161 beats per minute. Position is breech. Placenta is anterior grade II. There is oligohydramnios. The umbilical artery systolic to diastolic ratio is 3.0 proximally, 2.6 in the midportion, and 2.6 d istally. IMPRESSION: 1. The umbilical artery systolic to diastolic ratio is up to 2.7 for Twin A and up to 3.0 for Twin B. 2. Oligohydramnios. RPTAT: QQ .Mina Mason MD, MD Date Time Electronically viewed and signed by .Mina Mason MD, on 03/31/2017 15:22 .R/
[2017-03-31] MEDS: AZITHROMYCIN 250 MG in SOD CHLORIDE 0.9% 250 ML IVPB SCH (16:24)
[2017-04-01] VITALS (9 sets, daily range): BP systolic 105–121; BP diastolic 56–73; PULSE 83–118; RESP 18–20
[2017-04-01] MEDS: SOD CHLORIDE 0.9% 1,000 ML IV SCH ×2 (02:00→20:24)
[2017-04-01] MEDS: NIFEdipine 10 MG CAP PO SCH ×4 (06:15→19:04)
[2017-04-01] MEDS: PIPER-TAZO 3.375 GM IV (PMX) 100 ML IVPB SCH ×2 (06:15→14:36)
[2017-04-01 07:17] LABS: ADD SCAN DIFF NO
[2017-04-01 07:25] LABS: BASOPHILS % 0.2 % (0.0-2.0); EOSINOPHILS # 0.3 10^3/ul (0.0-0.5); EOSINOPHILS % 2.4 % (0.0-7.0); HEMATOCRIT 28.6 % (37.0-47.0); HEMOGLOBIN 9.3 g/dl (12.0-16.0); LYMPHOCYTES # 1.1 10^3/ul (0.8-2.9); LYMPHOCYTES % 10.7 % (15.0-51.0); MEAN CORPUSCULAR HEMOGLOBIN 28.1 pg (29.0-33.0); MEAN CORPUSCULAR HGB CONC 32.5 g/dl (32.0-37.0); MEAN CORPUSCULAR VOLUME 86.4 fl (82.0-101.0); MEAN PLATELET VOLUME 10.4 fl (7.4-10.4); MONOCYTE # 0.8 10^3/ul (0.3-0.9); NEUTROPHIL # 8.3 10^3/ul (1.6-7.5); NEUTROPHILS % 77.4 % (39.0-77.0); NUCLEATED RED BLOOD CELLS% 0.4 /100WBC (0.0-0.0); PLATELET COUNT 164 10^3/UL (140-415); RED BLOOD COUNT 3.31 10^6/ul (4.20-5.40); RED CELL DISTRIBUTION WIDTH 15.9 % (11.5-14.5); WHITE BLOOD COUNT 10.7 10^3/ul (4.8-10.8)
[2017-04-01] MEDS: LEVALBUTEROL (NEB) 1.25 MG/0.5 ML AMP HHN SCH ×3 (07:30→19:48)
[2017-04-01] MEDS: IPRATROPIUM (NEB) 0.5 MG/2.5 ML AMP HHN SCH ×3 (07:30→19:48)
--- NOTE | 2017-04-01 07:38 | RADRPT ---
PROCEDURE: XR Chest. CLINICAL INDICATION: Pneumonia TECHNIQUE: Single frontal chest x-ray. COMPARISON: 03/28/2017 FINDINGS: Bibasilar pulmonary consolidation is noted, decreased when compared to the prior x-ray. There is no pneumothorax. There is stable mild cardiomegaly. The osseous structures are unremarkable. IMPRESSION: 1. Bibasilar pulmonary consolidation is noted, decreased when compared to the prior x-ray, suggesti ve of resolving pneumonia. 2. Stable mild cardiomegaly. RPTAT: HH .Austin Burkett MD, MD Date Time Electronically viewed and signed by .Austin Burkett MD, MD on 04/01/2017 07:38 .R/
[2017-04-01 07:44] LABS: ALBUMIN 3.2 g/dl (3.3-4.9); ALBUMIN/GLOBULIN RATIO 1.23; BILIRUBIN,INDIRECT 0.1 mg/dl (0-1.1); BILIRUBIN,TOTAL 0.1 mg/dl (0.2-1.3); CALCIUM 8.6 mg/dl (8.4-10.2); CREATININE 0.71 mg/dl (0.44-1.00); MAGNESIUM 1.6 mg/dl (1.7-2.5); POTASSIUM 4.2 mmol/L (3.5-5.1); TOTAL PROTEIN 5.8 g/dl (6.1-8.1)
[2017-04-01] MEDS: TETRAHYDROZOLINE 0.05% 15 ML OPH BOTH EYES SCH ×2 (09:27→12:18)
[2017-04-01] MEDS: FERROUS SULFATE (EC) 325 MG TAB PO SCH (09:27)
[2017-04-01] MEDS: MULTIVIT/MIN/FOLATE/IRON/PREN TAB PO SCH (09:29)
--- NOTE | 2017-04-01 09:56 | QN ---
Documentation Comment pt. feeling better minimal oxygen supplementation needed vss heart tracing is category 1 cpm JULIO PEÑALOZA MD Apr 01, 2017 09:56
[2017-04-01] MEDS ORDERED: TERBUTALINE 1 MG/ML INJ SC PRN (10:00)
--- NOTE | 2017-04-01 13:32 | PERINOTE ---
Date/Time of Note Date/Time of Note DATE: 04/01/17 TIME: 13:26 Assessment/Recommendations Other Assessments Twin --the twins are IUGR and with low amniotic fluid, but stable Maternal pneumonia, resolving Recommendations: No new recommendations at this time. When the patient is ready for discharge, would consider transferring her to [facility] for further management of her . OB Subjective Free Text/Dictaton Patient with complicated twin , now improving. Chest x-ray and maternal function are improved. LFT's, previously elevated, are returned to normal range. Vaginal bleeding has decreased. HD# 9 Current Medications Current Medications Dimethicone (Blistex Lip [place]) 1 applic Q2H PRN TOP CHAPPED LIPS Last administered on 03/24/17 15:55; Admin Dose 1 APPLIC; Start 03/24/17 at 15:30 Prenat Multivit/ [place]/Iron/Folic Ac ( S) 1 tab DAILY PO Last administered on 04/01/17 09:29; Admin Dose 1 TAB; Start 03/25/17 at 16:00 Ferrous Sulfate 325 mg 325 mg DAILY PO Last administered on 04/01/17 09:27; Admin Dose 325 MG; Start 03/25/17 at 16:30 Sodium Chloride 1,000 ml @ 60 mls/hr [id number] IV Last administered on 23:57; Admin Dose 60 MLS/HR; Start 03/27/17 at 22:00 Piperacillin Sod/ Tazobactam Sod (Zosyn 3.375gm/ 100 ml (Pmx)) 100 ml @ 200 mls /hr Q8 IVPB Last administered on 04/01/17 06:15; Admin Dose 200 MLS/HR; Start 03/28/17 at 12:00 Tetrahydrozoline HCl (Geneyes Oph) 1 drop 09,13,17,21 BOTH EYES Last administered on 04/01/17 12:18; Admin Dose 1 DROP; Start 03/28/17 at 21:00 Nifedipine (Procardia) 10 mg Q6 PO Last administered on 04/01/17 12:18; Admin Dose 10 MG; Start 03/28/17 at 17:30; Stop 04/28/17 at 17:29 Zolpidem Tartrate (Ambien) 5 mg HS PRN PO INSOMNIA; Start 03/30/17 at 19:30 Terbutaline Sulfate (Brethine) 0.25 mg ONCE PRN SC if UCs become more regular; Start 04/01/17 at 10:00; Stop 04/02/17 at 09:59 OB Admission Exam Physical Exam Vitals: Vital Signs Date Time Temp Pulse Resp B/P Pulse Ox O2 Delivery O2 Flow Rate FiO2 04/01/17 12:34 98.5 90 18 105/69 96 04/01/17 09:16 Nasal Cannula 2.0 03/30/17 07:47 21 Last 72 hours Lab Results CBC & BMP 03/30/17 04:41 03/31/17 07:25 04/01/17 06:12 Liver Function Test 03/31/17 07:25 04/01/17 06:12 Alanine Aminotransferase (ALT/SGPT) 47 41 Albumin 3.2 L 3.2 L Alkaline Phosphatase 165 H 166 H Aspartate Amino Transf (AST/SGOT) 25 23 Direct Bilirubin 0.00 0.00 Total Protein 6.0 L 5.8 L Magnesium Level Test 03/31/17 07:25 04/01/17 06:12 Magnesium Level 1.8 1.6 L Ultrasound Results BPP 6/8 both twins (one off for low amniotic fluid) Ultrasound Comments: UA Dopplers are in the normal range Copies To: CC: JULIO PEÑALOZA MD, MARIE H MD Apr 01, 2017 13:32
--- NOTE | 2017-04-01 13:54 | CONS ---
Date/Time of Note Date/Time of Note DATE: 04/01/17 TIME: 13:52 Assessment/Plan Assessment/Plan Additional Assessment/Plan Assessment recommendations; next 1. Patient admitted for severe bilateral pneumonia with marked clinical and radiological improvement. 2. Patient currently with twins, , gated by requirement for cord ablation and to transfusion. Nephrology. History of hypertension. Patient can be discharged home on oral antibiotics I would recommend discharging her on Zithromax 500 mg daily for another 4-5 days in combination with a third generation oral cephalosporin for 5 days duration. Patient has adequate pulse oximetry on room air with ventilation. Consultation Date/Type/Reason Admit Date/Time Mar 24, 2017 at 16:08 Initial Consult Date 03/28/17 Type of Consultation: pulmonary 24 HR Interval Summary Free Text/Dictation Patient condition is markedly improved. She denies any shortness breath, chest pain, wheezing, sputum production. General exam; young woman, awake alert currently in no distress. Exam/Review of Systems Vital Signs Vitals Vital Signs Date Time Temp Pulse Resp B/P Pulse Ox O2 Delivery O2 Flow Rate FiO2 04/01/17 12:34 98.5 90 18 105/69 96 04/01/17 09:16 Nasal Cannula 2.0 03/30/17 07:47 21 Intake and Output 03/31/17 03/31/17 04/01/17 15:00 23:00 07:00 Intake Total 100 ml 1760 ml 1040 ml Output Total 1700 ml 1000 ml Balance 100 ml 60 ml 40 ml Exam HEENT exam is; supple neck, no JVD. No lymphadenopathy. Midline trachea. No thyromegaly. Pharynx is clear. Patient has good dentition. Chest examined; clear to ulceration. S1-S2 audible, no murmurs. Regular rhythm. Abdomen examination; soft, patient is gravid. Bowel sounds audible. Extremity examination; no peripheral edema. ROAD DESIGN ENGINEER examination; no focal deficit. Results Result Diagram: 04/01/17 0612 04/01/17 0612 Results 24 hrs Laboratory Tests Test 04/01/17 06:12 White Blood Count 10.7 Red Blood Count 3.31 L Hemoglobin 9.3 L Hematocrit 28.6 L Mean Corpuscular Volume 86.4 Mean Corpuscular Hemoglobin 28.1 L Mean Corpuscular Hemoglobin Concent 32.5 Red Cell Distribution Width 15.9 H Platelet Count 164 Mean Platelet Volume 10.4 Neutrophils % 77.4 H Lymphocytes % 10.7 L Monocytes % 7.0 Eosinophils % 2.4 Basophils % 0.2 Nucleated Red Blood Cells % 0.4 H Neutrophils # 8.3 H Lymphocytes # 1.1 Monocytes # 0.8 Eosinophils # 0.3 Basophils # 0.0 Nucleated Red Blood Cells # 0.0 Sodium Level 135 Potassium Level 4.2 Chloride Level 109 Carbon Dioxide Level 19 L Anion Gap 11 Blood Urea Nitrogen 4 L Creatinine 0.71 Glucose Level 80 Calcium Level 8.6 Magnesium Level 1.6 L Total Bilirubin 0.1 L Direct Bilirubin 0.00 Indirect Bilirubin 0.1 Aspartate Amino Transf (AST/SGOT) 23 Alanine Aminotransferase (ALT/SGPT) 41 Alkaline Phosphatase 166 H Total Protein 5.8 L Albumin 3.2 L Globulin 2.60 Albumin/Globulin Ratio 1.23 Medications Medications Current Medications Dimethicone (Blistex Lip [place]) 1 applic Q2H PRN TOP CHAPPED LIPS Last administered on 03/24/17 15:55; Admin Dose 1 APPLIC; Start 03/24/17 at 15:30 Prenat Multivit/ Jones/Iron/Folic Ac ( S) 1 tab DAILY PO Last administered on 04/01/17 09:29; Admin Dose 1 TAB; Start 03/25/17 at 16:00 Ferrous Sulfate 325 mg 325 mg DAILY PO Last administered on 04/01/17 09:27; Admin Dose 325 MG; Start 03/25/17 at 16:30 Sodium Chloride 1,000 ml @ 60 mls/hr [id number] IV Last administered on 23:57; Admin Dose 60 MLS/HR; Start 03/27/17 at 22:00 Piperacillin Sod/ Tazobactam Sod (Zosyn 3.375gm/ 100 ml (Pmx)) 100 ml @ 200 mls /hr Q8 IVPB Last administered on 04/01/17 06:15; Admin Dose 200 MLS/HR; Start 03/28/17 at 12:00 Tetrahydrozoline HCl (Geneyes Oph) 1 drop 09,13,17,21 BOTH EYES Last administered on 04/01/17 12:18; Admin Dose 1 DROP; Start 03/28/17 at 21:00 Nifedipine (Procardia) 10 mg Q6 PO Last administered on 04/01/17t 12:18; Admin Dose 10 MG; Start 03/28/17 at 17:30; Stop 04/28/17 at 17:29 Zolpidem Tartrate (Ambien) 5 mg HS PRN PO INSOMNIA; Start 03/30/17 at 19:30 Terbutaline Sulfate (Brethine) 0.25 mg ONCE PRN SC if UCs become more regular; Start 04/01/17 at 10:00; Stop 04/02/17 at 09:59 LUTHER MORROW Apr 01, 2017 13:54
--- NOTE | 2017-04-01 18:52 | CONS ---
Date/Time of Note Date/Time of Note DATE: 04/01/17 TIME: 18:50 Consult Date/Type/Reason Admit Date/Time Mar 24, 2017 at 16:08 Initial Consult Date 03/28/17 Type of Consultation: pulmonary Subjective Less SOB, seen by pulm team. Objective Vital Signs Date Time Temp Pulse Resp B/P Pulse Ox O2 Delivery O2 Flow Rate FiO2 04/01/17 16:40 97 04/01/17 16:28 98.1 20 121/64 95 04/01/17 14:15 Nasal Cannula 2.0 03/30/17 07:47 21 Intake and Output 03/31/17 03/31/17 04/01/17 15:00 23:00 07:00 Intake Total 100 ml 1760 ml 1040 ml Output Total 1700 ml 1000 ml Balance 100 ml 60 ml 40 ml Exam Constitutional: alert, oriented, No distress Head: atraumatic, normocephalic Eyes: PERRL ENMT: mucosa pink and moist Neck: supple Respiratory: less crackles/rales (LLB), diminished breath sounds Cardiovascular: S1S2 no murmur Gastrointestinal: other (gravid / non tender) Extremities: No edema Neurological: nl mental status, nl speech Results/Medications Result Diagram: 04/01/17 0612 04/01/17 0612 Results 24 hrs Laboratory Tests Test 04/01/17 06:12 White Blood Count 10.7 Red Blood Count 3.31 L Hemoglobin 9.3 L Hematocrit 28.6 L Mean Corpuscular Volume 86.4 Mean Corpuscular Hemoglobin 28.1 L Mean Corpuscular Hemoglobin Concent 32.5 Red Cell Distribution Width 15.9 H Platelet Count 164 Mean Platelet Volume 10.4 Neutrophils % 77.4 H Lymphocytes % 10.7 L Monocytes % 7.0 Eosinophils % 2.4 Basophils % 0.2 Nucleated Red Blood Cells % 0.4 H Neutrophils # 8.3 H Lymphocytes # 1.1 Monocytes # 0.8 Eosinophils # 0.3 Basophils # 0.0 Nucleated Red Blood Cells # 0.0 Sodium Level 135 Potassium Level 4.2 Chloride Level 109 Carbon Dioxide Level 19 L Anion Gap 11 Blood Urea Nitrogen 4 L Creatinine 0.71 Glucose Level 80 Calcium Level 8.6 Magnesium Level 1.6 L Total Bilirubin 0.1 L Direct Bilirubin 0.00 Indirect Bilirubin 0.1 Aspartate Amino Transf (AST/SGOT) 23 Alanine Aminotransferase (ALT/SGPT) 41 Alkaline Phosphatase 166 H Total Protein 5.8 L Albumin 3.2 L Globulin 2.60 Albumin/Globulin Ratio 1.23 Medications Current Medications Dimethicone (Blistex Lip [place]) 1 applic Q2H PRN TOP CHAPPED LIPS Last administered on 03/24/17 15:55; Admin Dose 1 APPLIC; Start 03/24/17 at 15:30 Prenat Multivit/ [employer]/Iron/Folic Ac ( S) 1 tab DAILY PO Last administered on 04/01/17 09:29; Admin Dose 1 TAB; Start 03/25/17 at 16:00 Ferrous Sulfate 325 mg 325 mg DAILY PO Last administered on 04/01/17 09:27; Admin Dose 325 MG; Start 03/25/17 at 16:30 Sodium Chloride 1,000 ml @ 60 mls/hr [id number] IV Last administered on 23:57; Admin Dose 60 MLS/HR; Start 03/27/17 at 22:00 Piperacillin Sod/ Tazobactam Sod (Zosyn 3.375gm/ 100 ml (Pmx)) 100 ml @ 200 mls /hr Q8 IVPB Last administered on 04/01/17 14:36; Admin Dose 200 MLS/HR; Start 03/28/17 at 12:00 Tetrahydrozoline HCl (Geneyes Oph) 1 drop 09,13,17,21 BOTH EYES Last administered on 04/01/17 12:18; Admin Dose 1 DROP; Start 03/28/17 at 21:00 Nifedipine (Procardia) 10 mg Q6 PO Last administered on 04/01/17 12:18; Admin Dose 10 MG; Start 03/28/17 at 17:30; Stop 04/28/17 at 17:29 Zolpidem Tartrate (Ambien) 5 mg HS PRN PO INSOMNIA; Start 03/30/17 at 19:30 Terbutaline Sulfate (Brethine) 0.25 mg ONCE PRN SC if UCs become more regular; Start 04/01/17 at 10:00; Stop 04/02/17 at 09:59 Assessment/Plan Chief Complaint/Hosp Course Assessment/Plan 31-year-old female with the following who originally pesented with contractions and is now managed for : 1. Acute shortness of breath 2/2 Pneumonia and vasc congestion: * Much improved * Echo shows elevated peak PA pressure of 50 2. 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 Hypochromic anemia s/p transfusion of 2 units so far 4. Sepsis 2/2 Pneumonia: improved 5. Transaminitis 6. G Vaginalis UTI 7. 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 Apr 01, 2017 18:51
[2017-04-02] MEDS: NIFEdipine 10 MG CAP PO SCH ×4 (00:04→18:00)
[2017-04-02] MEDS: PIPER-TAZO 3.375 GM IV (PMX) 100 ML IVPB SCH ×3 (00:58→16:52)
[2017-04-02] MEDS: IPRATROPIUM (NEB) 0.5 MG/2.5 ML AMP HHN SCH ×3 (08:00→20:04)
[2017-04-02] MEDS: FERROUS SULFATE (EC) 325 MG TAB PO SCH (09:32)
[2017-04-02] MEDS: MULTIVIT/MIN/FOLATE/IRON/PREN TAB PO SCH (09:32)
--- NOTE | 2017-04-02 11:02 | RADRPT ---
PROCEDURE: OB ultrasound for biophysical profile CLINICAL INDICATION: Twin . Biophysical profile. . TECHNIQUE: Multiple sonographic images of the pelvis were obtained. Transabdominal view of the gr avid uterus are available for review. The images were reviewed on a PACS workstation. COMPARISON: 03/30/2017 FINDINGS: Twin intrauterine gestations are identified. Placenta is fundal/right lateral without evidence for abruption or previa. Twin A: breathing movement = 2/2 tone = 2/2 motion = 2/2 RED = 0/2 Cephalic presentation. heart rate is 146 bpm. Maximum vertical pocket of fluid measures 1.6 cm . Twin B: breathing movement = 2/2 tone = 2/2 motion = 2/2 RED = 0/2 Breech presentation. heart rate is 174 bpm. Maximum vertical pocket of fluid measures 1.3 cm. IMPRESSION: 1. Twin live intrauterine gestations. 2. Biophysical profile score is 6/8 for both twins. 3. Oligohydramnios is noted - maximum vertical pocket of fluid measures 1.6 cm for twin A and 1.3 c m for twin B. 4. Twin B is in breech position. RPTAT: UU .Austin Burkett MD, Date Time Electronically viewed and signed by .Austin Burkett MD, on 04/02/2017 11:01 .R/
[2017-04-02] MEDS: LEVALBUTEROL (NEB) 1.25 MG/0.5 ML AMP HHN SCH ×3 (11:05→20:04)
[2017-04-02] MEDS: SOD CHLORIDE 0.9% 1,000 ML IV SCH ×2 (11:20→17:56)
--- NOTE | 2017-04-02 12:44 | QN ---
Documentation Comment doing well vss tracing catg. 1 no active bleeding will d/c home today JULIO PEÑALOZA MD Apr 02, 2017 12:43
--- NOTE | 2017-04-02 16:20 | CONS ---
Date/Time of Note Date/Time of Note DATE: 04/02/17 TIME: : Consult Date/Type/Reason Admit Date/Time Mar 24, 2017 at 16:08 Initial Consult Date 03/28/17 Type of Consultation: pulmonary Subjective Less SOB. Objective Vital Signs Date Time Temp Pulse Resp B/P Pulse Ox O2 Delivery O2 Flow Rate FiO2 04/02/17 14:32 106 20 96 21 04/01/17 16:28 98.1 121/64 04/01/17 14:15 Nasal Cannula 2.0 Intake and Output 04/01/17 04/01/17 04/02/17 15:00 23:00 07:00 Intake Total 300 ml Output Total 200 ml 1200 ml Balance -200 ml -900 ml Exam Constitutional: alert, oriented, No distress Head: atraumatic, normocephalic Eyes: PERRL ENMT: mucosa pink and moist Neck: supple Respiratory: less crackles/rales (LLB), diminished breath sounds Cardiovascular: S1S2 no murmur Gastrointestinal: other (gravid / non tender) Extremities: No edema Neurological: nl mental status, nl speech Results/Medications Result Diagram: 04/01/1761104/01/17 0612 Medications Current Medications Dimethicone (Blistex Lip [place]) 1 applic Q2H PRN TOP CHAPPED LIPS Last administered on 03/24/17 15:55; Admin Dose 1 APPLIC; Start 03/24/17 at 15:30 Ferrous Sulfate 325 mg 325 mg DAILY PO Last administered on 04/02/17 09:32; Admin Dose 325 MG; Start 03/25/17 at 16:30 Sodium Chloride 1,000 ml @ 40 mls/hr Q24H IV Last administered on 04/01/17 20 :24; Admin Dose 60 MLS/HR; Start 03/27/17 at 22:00 Piperacillin Sod/ Tazobactam Sod (Zosyn 3.375gm/ 100 ml (Pmx)) 100 ml @ 200 mls /hr Q8 IVPB Last administered on 04/02/17 08:39; Admin Dose 200 MLS/HR; Start 03/28/17 at 12:00 Tetrahydrozoline HCl (GenePacejet Logisticss Oph) 1 drop 09,13,17,21 BOTH EYES Last administered on 04/01/17 12:18; Admin Dose 1 DROP; Start 03/28/17 at 21:00 Nifedipine (Procardia) 10 mg Q6 PO Last administered on 04/02/17t 11:57; Admin Dose 10 MG; Start 03/28/17 at 17:30; Stop 04/28/17 at 17:29 Zolpidem Tartrate (Ambien) 5 mg HS PRN PO INSOMNIA; Start 03/30/17 at 19:30 Prenat Multivit/ [place]/Iron/Folic Ac ( S) 1 tab DAILY PO ; Start at 09:00 Assessment/Plan Chief Complaint/Hosp Course Assessment/Plan 31-year-old female with the following who originally pesented with contractions and is now managed for : 1. Acute shortness of breath 2/2 Pneumonia and vasc congestion: * improved * Echo shows elevated peak PA pressure of 50 2. 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 Hypochromic anemia s/p transfusion of 2 units so far 4. Sepsis 2/2 Pneumonia: improved 5. Transaminitis 6. G Vaginalis UTI 7. 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 Problems: MURPHY SANDERS Apr 02, 2017 16:20
[2017-04-02] MEDS: TETRAHYDROZOLINE 0.05% 15 ML OPH BOTH EYES SCH (16:52)
[2017-04-03] MEDS: PIPER-TAZO 3.375 GM IV (PMX) 100 ML IVPB SCH ×2 (00:13→07:41)
[2017-04-03] MEDS: NIFEdipine 10 MG CAP PO SCH ×2 (00:14→05:57)
[2017-04-03] MEDS: IPRATROPIUM (NEB) 0.5 MG/2.5 ML AMP HHN SCH (07:37)
[2017-04-03] MEDS: LEVALBUTEROL (NEB) 1.25 MG/0.5 ML AMP HHN SCH (07:37)
[2017-04-03] MEDS ORDERED: MULTIVIT/MIN/FOLATE/IRON/PREN TAB PO SCH (09:00)
== END 2017-04-03 08:30 | disposition home or self-care (01) | DRG 781 ==
LOC: OBT 13:43 → L-D 13:45 → OBT 16:08 → ICU 03-28 09:30 → MS4 03-30 10:47 → OBG 04-01 17:00
PROVIDERS: ADMIT Obstetrics & Gynecology; ATTEND Obstetrics & Gynecology
DX: O98.812 Other maternal infectious and parasitic diseases complicating pregnancy, second trimester (principal); A41.9 Sepsis, unspecified organism; O23.42 Unspecified infection of urinary tract in pregnancy, second trimester; E83.51 Hypocalcemia; O99.512 Diseases of the respiratory system complicating pregnancy, second trimester; O62.9 Abnormality of forces of labor, unspecified; O30.042 Twin pregnancy, dichorionic/diamniotic, second trimester; O46.92 Antepartum hemorrhage, unspecified, second trimester; O99.012 Anemia complicating pregnancy, second trimester; O26.892 Other specified pregnancy related conditions, second trimester; R06.02 Shortness of breath; R74.0 Nonspecific elevation of levels of transaminase and lactic acid dehydrogenase [LDH]; Z3A.28 28 weeks gestation of pregnancy; Z86.79 Personal history of other diseases of the circulatory system
CPT/HCPCS: 36430; 36600; 71010; 76815; 76818; 76820; 80048; 80053; 80076; 80307; 81001; 82803; 83010; 83020; 83036; 83615; 83735; 83880; 85014; 85018; 85025; 85384; 85460; 85610; 85730; 86592; 86703; 86762; 86850; 86900; 86901; 86920; 87081; 87086; 87340; 90715; 93005; 93306; 93970; 94640; 94664; J1940; G0463; J0290; J0456; J0610; J0696; J0702; J2543; J3475; J7030; J7050; J7120; J7121; P9016